=== PATIENT | male | born 1960 | race Caucasian/White ===

== ENCOUNTER 2021-07-19 14:30 | Outpatient (RCR) | payer OTHER, SELFPAY ==
--- NOTE | 2021-05-11 17:09 | ST.OPTN ---
Visit Care Team Role Provider Type Krystyna Zeng MD Family Provider Non-Staff Primary Care Provider Address: [place], [address] NIKKI Ji Attending Provider Non-Staff Referring Provider Address: [address] [place], [address] PROGRAM PROFESSIONAL Treatment Note PROGRAM PROFESSIONAL Treatment Note Start: 05/04/21 15:48 Freq: Status: Active Protocol: Document 05/11/21 16:46 LNK (Rec: 05/11/21 17:09 LNK [id number]) Speech Pathology Treatment Note Session Time Visit Start Time 11:30 Visit Stop Time 12:30 Total Visit Minutes 4 Visit Information Visit Number 2 Plan of Care Dates 05/04/21-08/20/21 Setting Treatment Setting Outpatient Care Visit Type Note Type Treatment Note Next Note Type Next Note Type Treatment Note General Information General Information Pt is a 60 year old male who presented for evaluation of assessment of aphasia secondary to early onset Alzheimers. Pt was accompanied by his , Kate . According to the pt and his , behavioral changes in pt 's presentation were observed by the pt's 2-3 years ago . In August 2020, she began to suspect something was wrong and sought medical assistance. Pt received formal diagnosis of early onset Alzheimer's Disease in November 2020. Pt was referred to this clinic for assessment of Aphasia as pt is unable to express himself or understand all that is said to him. He complains of word- finding difficulty, difficulty with formulating thoughts, confusion and memory problems. His describes her 's communication attempts as consisting of gestures, difficulty with verbal expression, halting and incomplete attempts to express his needs. She also reports noticing that her is more confused. Pt is retired [employer],taking early intermediate as he was unable to carry out his job effectively . His has since stopped working to be home with her . Currently pt has a primary care physician in [place], and one Neurologist in [place] and another at the [facility]. Subjective Identification Type Name,Date of Identification Reconciled With Medical Record Others Present Family Chief Complaint(s) Language,Cognitive Patient Knowledge/Awareness of PROGRAM PROFESSIONAL Role Good in Treatment Parent/Caretake Knowledge/Awareness of Good PROGRAM PROFESSIONAL Role in Treatment Objective Short Term Goals COMMUNICATION: 1) Pt will explore options for obtaining a tablet and the AAC porgram TouchChat. 2) Pt and provider education will be targeted in order for understanding how to use AAC and personalize thw icons relative to the pt. COGNITION: 1) Pt / will create a centralized information hub using a white board listing important events, a calendar, chores list etc. Pt's keys, phone, etc will be located in this information hub for consistency and convenience for the pt to find information . 2) A picture book/memory book will be created by the pt and his . Pictures of family members, meaningful events, possessions such as a favorite car, etc. can be included to stimulate the pt's memory and provide cognitive stimulation. 3) Caregiver education will be provided on how to assist the pt's expression/memory using strategic methods. [ End ] Treatment Activities Reviewed last week's appointment to reorient pt to the session and why he is in therapy. Reviewed the assessment needs for the pt and the recommendation for AAC system. Pt and agreed with the plan. AAC systems were described and demonstrated. Encouraged the pt and his to explore different AAC aps in addition to TouchChat to make sure the pt is able to use the system effectively. Assessment Patient Response to Treatment Excellent Rehab Potential Fair Impairments Identified Aphasia,Auditory Comprehension ,Cognitive-Linguistic Skills, Memory - Typing Pool Supervisor,Memory - Short Term,Problem Solving Assessment of Improvement Pt was better able to verbally express himself today, stating it is a good day. He stated he was encouraged to get going on using the AAC as needed. Cognitive supports were described and discussed relative to what the pt and his have started at home. His reported there is a white board for central information, she is labeling thing in order to help the pt stay organized and know where things go. Encouraged a picture book for memory assistance and to encourage expressive language (verbal/ AAC, etc.). Both agreed that would be important to get started on. Reviewed with Patient Goals,Home Exercise Program Patient/Caregiver Understanding Excellent Plan Therapeutic Contents Cognitive-Linguistic Training, Expressive Language Training Provided Patient/Caregiver Instruction Home Exercise Program,Plan of Care,Questions/Concerns
--- NOTE | 2021-05-15 16:08 | ST.OPIE ---
Visit Care Team Role Provider Type Krystyna Zeng MD Family Provider Non-Staff Primary Care Provider Specialty: Medical [facility] [place], [address] Email: NIKKI Ji Attending Provider Non-Staff Referring Provider Specialty: Nursing Address: [address], [place], [address] Email: Speech-Language Pathology Initial Evaluation VISUAL ASSOCIATE Adult Cognitive Linguistic Eval Start: 05/04/21 15:48 Freq: Status: Active Protocol: Document 05/04/21 15:52 LNK (Rec: 05/04/21 16:01 LNK [id number]) Adult Cognitive Linguistic Evaluation Session Time Visit Start Time 11:30 Visit Stop Time 12:30 Total Visit Minutes 60 Visit Information Plan of Care Dates 05/04/21-08/20/21 Insurance Information Referral Referring Provider Dr. Kacey Boyce, Neurologist. Reason for Referral early onset Alzheimers Setting Assessment Location Outpatient Care Visit Type Note Type Initial evaluation Patient Information Identification Type Name,Date of Medical History Pt is a 60 year old male who presented for evaluation of assessment of aphasia secondary to early onset Alzheimers. Pt was accompanied by his , Kate . According to the pt and his , behavioral changes in pt 's presentation were observed by the pt's 2-3 years ago . In August 2020, she began to suspect something was wrong and sought medical assistance. Pt received formal diagnosis of early onset Alzheimer's Disease in November 2020. Pt was referred to this clinic for assessment of Aphasia as pt is unable to express himself or understand all that is said to him. He complains of word- finding difficulty, difficulty with formulating thoughts, confusion and memory problems. His describes her 's communication attempts as consisting of gestures, difficulty with verbal expression, halting and incomplete attempts to express his needs. She also reports noticing that her is more confused. Pt is retired [employer],taking early half-way as he was unable to carry out his job effectively . His has since stopped working to be home with her . Currently pt has a primary care physician in [place], and one Neurologist in [place] and another at the [facility]. Occupation Status [employer], Retired Previous Therapy Previous Speech-Language Therapy No Subjective Patient Report Pt and his were seated in the treatment room. They were able to present the pt's history as it pertained to this appointment. Pt's did most of the talking and pt provided some information. Informal Assessment Receptive Language Normal No Expressive Language Normal No Speech Impairment(s) Imprecise articulation Cognition Normal No Formal Assessment Administration Discontinued Results The Western Aphasia Battery was initiated relative to pt's difficulty with expressing himself. It quickly became obvious that the pt's disease process had progressed to where the assessment requirements were beyond the pt's ability. He became confuces by the directions and was frustrated that he was unable to participate. The pt 's reported that [facility], [facility], pt's cognition was evaluated using the SLUMS. She stated that the DrRuddy reported a low SLUMS score, indicating significant cognitive decline. Based on the above observations, the WAB testing was aborted and a Functional Needs Assessment was initiated. Findings/Results Language Function Moderately-severely impaired Cognitive Function Moderately impaired Findings Pt presented with severe communication skill deficits. Pt was oriented to self, person and place; He pointed to the door but he was unable to locate the window when asked to point to the door and then the window. He was able to answer 20 yes/no questions accurately. He was able to state his name, his former occupation and his age. He had difficulty with saying his address or name items within the treatment room. He demonstrated halting telegraphic speech consisting of single, paraphasias, occasional prepositional phrases, severe fluency disruptions and severe word- finding difficulty. His reported it is a lot of work to figure out what the pt is talking about. Cognitively, pt demonstrated the inability to follow more than single step directions. He was confused when asked to list the names of animals, unable to understand the directions or what I was asking of him.. He was unable to report his address or repeat more than a 3 syllable phrase. Mathmatical computation recall of more than 2 words were observed. The pt would frequently say no or yes in response to any difficult questions or tasks. He demonstrated deficits in working memory, and short term memory skills. Cognitive-Linguistic therapy is recommended weekly for 6 months. For communication, the use of an AAC program, Beto, is recommended. This AAC program is user friendly, is portable via tablet and/or smart phone. Pt and his will be educated in programming the AAC to personalize the output. Cognitively, therapy focuses on functional and meaningful outcomes that include the pt and caregivers in collaborative decision-making process. The goal is to improve functional outcomes that improve the pt's daily life. Strategies such as external memory supports include centralized system of information, (e.g., a calendar , lists of chores, etc). The use of pictures relative to the pt can be used for identifying family, vacations, etc. Dependent on the needs of the pt, the person-centered therapy goals are created. Cognitive Communication Deficits Self-awareness of Cognitive- Situational awareness ( Communication Deficits recognition of problem in context;in real time) Concomitant Factors Comment Pt reported inconsistent visual field loss, primarily on left side Impact on Functioning Safety Risks Mod: Being Left Alone at Home Sev: Reacting to Emergency Managing Medication Traveling Alone in Community Prognosis Based on Cognitive status,Other ( comment) Comment Progressive nature of disease process Plan of Care Speech-Language Treatment Yes Frequency weekly Duration currently pt has 15 sessions authorized Patient/Caregiver Education Described results of evaluation,Patient expressed understanding of evaluation, Patient expressed agreement with goals and treatment plans ,Family/caregivers expressed understanding of evaluation, Family/caregivers expressed agreement with goals and treatment plan,Patient requires further education/ training,Family/caregivers require further education/ training Short Term Goals COMMUNICATION: 1) Pt will explore options for obtaining a tablet and the AAC porgram TouchChat. 2) Pt and provider education will be targeted in order for understanding how to use AAC and personalize thw icons relative to the pt. COGNITION: 1) Pt / will create a centralized information hub using a white board listing imprtant events, a calendar, chores list etc. Pt's keys, phone, etc will be located in [facility] information hub for consistency and convenience for the pt to find information . 2) A picture book/memory book will be created by the pt and his . Pictures of family members, meaningful events, possessions such as a favorite car, etc. can be included to stimulate the pt's memory and provide cognitive stimulation. 3) Caregiver education will be provided on how to assist the pt's expression/memory using stagegic methods.
--- NOTE | 2021-05-15 16:09 | ST.OPPOC ---
Physical, Occupational & Speech Therapy At [facility] Visit Care Team Role Provider Type Krystyna Zeng MD Family Provider Non-Staff Primary Care Provider Address: [place], [address] NIKKI Ji Attending Provider Non-Staff Referring Provider Address: [address] [place], [address] Speech Pathology Plan of Care General Information Pt is a 60 year old male who presented for evaluation of assessment of aphasia secondary to early onset Alzheimers. Pt was accompanied by his , Kate. According to the pt and his , behavioral changes in pt's presentation were observed by the pt's 2-3 years ago. In August 2020, she began to suspect something was wrong and sought medical assistance. Pt received formal diagnosis of early onset Alzheimer's Disease in November 2020. Pt was referred to this clinic for assessment of Aphasia as pt is unable to express himself or understand all that is said to him. He complains of word-finding difficulty, difficulty with formulating thoughts, confusion and memory problems. His describes her 's communication attempts as consisting of gestures , difficulty with verbal expression, halting and incomplete attempts to express his needs. She also reports noticing that her is more confused. Pt is retired [employer],taking early half-way as he was unable to carry out his job effectively. His has since stopped working to be home with her . Currently pt has a primary care physician in [place], and one Neurologist in [place] and another at the [facility]. Visit Number 2 Plan of Care Dates 05/04/21-08/20/21 Chief Complaint(s) Language,Cognitive Patient Knowledge/Awareness of Good POLE FRAMER Role in Treatment Parent/Caretake Knowledge/ Good Awareness of POLE FRAMER Role in Treatment Language Function Moderately-severely impai Cognitive Function Moderately impaired Findings Pt presented with severe communication skill deficits. Pt was oriented to self, person and place; He pointed to the door but he was unable to locate the window when asked to point to the door and then the window. He was able to answer 20 yes/no questions accurately. He was able to state his name, his former occupation and his age. He had difficulty with saying his address or name items within the treatment room. He demonstrated halting telegraphic speech consisting of single, paraphasias, occasional prepositional phrases, severe fluency disruptions and severe word-finding difficulty. His reported it is a lot of work to figure out what the pt is talking about. Cognitively, pt demonstrated the inability to follow more than single step directions. He was confused when asked to list the names of animals , unable to understand the directions or what I was asking of him.. He was unable to report his address or repeat more than a 3 syllable phrase. Mathmatical computation recall of more than 2 words were observed. The pt would frequently say no or yes in response to any difficult questions or tasks. He demonstrated deficits in working memory, and short term memory skills. Cognitive-Linguistic therapy is recommended weekly for 6 months. For communication, the use of an AAC program, EnerveechChat, is recommended. This AAC program is user friendly, is portable via tablet and/or smart phone. Pt and his will be educated in programming the AAC to personalize the output. Cognitively, therapy focuses on functional and meaningful outcomes that include the pt and caregivers in collaborative decision-making process. The goal is to improve functional outcomes that improve the pt's daily life. Strategies such as external memory supports include centralized system of information, (e.g. , a calendar, lists of chores, etc). The use of pictures relative to the pt can be used for identifying family, vacations, etc. Dependent on the needs of the pt, the person-centered therapy goals are created. Short Term Goals COMMUNICATION: 1) Pt will explore options for obtaining a tablet and the AAC myhubChat. 2) Pt and provider education will be targeted in order for understanding how to use AAC and personalize thw icons relative to the pt. COGNITION: 1) Pt / will create a centralized information hub using a white board listing imprtant events, a calendar, chores list etc. Pt 's keys, phone, etc will be located in [facility] information hub for consistency and convenience for the pt to find information. 2) A picture book/memory book will be created by the pt and his . Pictures of family members , meaningful events, possessions such as a favorite car, etc. can be included to stimulate the pt's memory and provide cognitive stimulation. 3) Caregiver education will be provided on how to assist the pt's expression/memory using stagegic methods. [ End ] Treatment Activities Reviewed last week's appointment to reorient pt to the session and why he is in therapy. Reviewed the assessment needs for the pt and the recommendation for AAC system. Pt and agreed with the plan. AAC systems were described and demonstrated. Encouraged the pt and his to explore different AAC aps in addition to TouchChat to make sure the pt is able to use the system effectively. Rehabilitation Potential Fair Impairments Identified Aphasia,Auditory Comprehension,Cognition,Memory - Alf,Memory - Short Term,Problem Solving Assessment of Improvement Pt was better able to verbally express himself today, stating it is a good day. He stated he was encouraged to get going on using the AAC as needed. Cognitive supports were described and discussed relative to what the pt and his have started at home. His reported there is a white board for central information, she is labeling thing in order to help the pt stay organized and know where things go. Encouraged a picture book for memory assistance and to encourage expressive language (verbal/AAC, etc.) . Both agreed that would be important to get started on. Reviewed with Patient Goals,Home Exercise Program Patient Understanding Excellent Therapeutic Contents Cognitive-Linguistic Sarbjit,Expressive Language Train Electronically Signed by: Morelia Marie, POLE FRAMER 05/15/21 1743 Please Sign and Return: I have reviewed this Plan of Care and certify that the skilled therapy services above are required to meet the patient?s needs. Physician Signature Date Printed Name and Credentials Clinical Instructor Signature Printed Name and Credentials
--- NOTE | 2021-05-25 16:57 | ST.OPTN ---
Visit Care Team Role Provider Type Krystyna Zeng MD Family Provider Non-Staff Primary Care Provider Address: [place], [address] NIKKI Ji Attending Provider Non-Staff Referring Provider Address: [address] [place], [address] EMERGENCY MEDICAL SERVICES COORDINATOR Treatment Note EMERGENCY MEDICAL SERVICES COORDINATOR Treatment Note Start: 05/04/21 15:48 Freq: Status: Active Protocol: Document 05/25/21 16:50 LNK (Rec: 05/25/21 16:57 LNK [email or web address]) Speech Pathology Treatment Note Session Time Visit Start Time 11:30 Visit Stop Time 12:30 Total Visit Minutes 60 Visit Information Visit Number 3 Plan of Care Dates 05/04/21-08/20/21 Setting Treatment Setting Outpatient Care Visit Type Note Type Treatment Note Next Note Type Next Note Type Treatment Note General Information General Information Pt is a 60 year old male who presented for evaluation of assessment of aphasia secondary to early onset Alzheimers. Pt was accompanied by his , Kate . According to the pt and his , behavioral changes in pt 's presentation were observed by the pt's 2-3 years ago . In August 2020, she began to suspect something was wrong and sought medical assistance. Pt received formal diagnosis of early onset Alzheimer's Disease in November 2020. Pt was referred to this clinic for assessment of Aphasia as pt is unable to express himself or understand all that is said to him. He complains of word- finding difficulty, difficulty with formulating thoughts, confusion and memory problems. His describes her 's communication attempts as consisting of gestures, difficulty with verbal expression, halting and incomplete attempts to express his needs. She also reports noticing that her is more confused. Pt is retired [employer],taking early custodial as he was unable to carry out his job effectively . His has since stopped working to be home with her . Currently pt has a primary care physician in [place], and one Neurologist in [place] and another at the [facility]. Subjective Identification Type Name,Date of Identification Reconciled With Medical Record Others Present Family Chief Complaint(s) Language,Cognitive Patient Knowledge/Awareness of EMERGENCY MEDICAL SERVICES COORDINATOR Role Good in Treatment Parent/Caretake Knowledge/Awareness of Good EMERGENCY MEDICAL SERVICES COORDINATOR Role in Treatment Objective Short Term Goals COMMUNICATION: 1) Pt will explore options for obtaining a tablet and the AAC porgram TouchChat. 2) Pt and provider education will be targeted in order for understanding how to use AAC and personalize thw icons relative to the pt. COGNITION: 1) Pt / will create a centralized information hub using a white board listing imprtant events, a calendar, chores list etc. Pt's keys, phone, etc will be located in [facility] information hub for consistency and convenience for the pt to find information . 2) A picture book/memory book will be created by the pt and his . Pictures of family members, meaningful events, possessions such as a favorite car, etc. can be included to stimulate the pt's memory and provide cognitive stimulation. 3) Caregiver education will be provided on how to assist the pt's expression/memory using strategic methods. [ End ] Treatment Activities Reviewed last week's appointment to reorient pt to the session and why he is in therapy. AAC communication was introduced with TouchChat This appeared to be too difficult for the pt with many levels to navigate. Given his memory, he may not be successful. Pt discussed the difficulty and indicated he may start with a simpler AAC. Reviewed the aphasia and the cognitive decline. Provided Functional Needs list for the pt and his to complete and bring back. Overview of the GPDR sys tem to help pt with ADL completion. Assessment Patient Response to Treatment Excellent Rehab Potential Fair Impairments Identified Aphasia,Auditory Comprehension ,Cognitive-Linguistic Skills, Memory - Doll Wig Maker Rooted Hair,Memory - Short Term,Problem Solving Reviewed with Patient Goals,Home Exercise Program Patient/Caregiver Understanding Excellent Plan Therapeutic Contents Cognitive-Linguistic Training, Expressive Language Training Provided Patient/Caregiver Instruction Home Exercise Program,Plan of Care,Questions/Concerns
--- NOTE | 2021-06-07 17:17 | ST.OPTN ---
Visit Care Team Role Provider Type Krystyna Zeng MD Family Provider Non-Staff Primary Care Provider Address: [place], [address] NIKKI Ji Attending Provider Non-Staff Referring Provider Address: [address] [place], [address] VACCINE CUSTOMER REPRESENTATIVE Treatment Note VACCINE CUSTOMER REPRESENTATIVE Treatment Note Start: 05/04/21 15:48 Freq: Status: Active Protocol: Document 06/07/21 17:03 LNK (Rec: 06/07/21 17:17 LNK [id number]) Speech Pathology Treatment Note Session Time Visit Start Time 14:30 Visit Stop Time 15:30 Total Visit Minutes 60 Visit Information Visit Number 4 Plan of Care Dates 05/04/21-08/20/21 Setting Treatment Setting Outpatient Care Visit Type Note Type Treatment Note Next Note Type Next Note Type Treatment Note General Information General Information Pt is a 60 year old male who presented for evaluation of assessment of aphasia secondary to early onset Alzheimers. Pt was accompanied by his , Kate . According to the pt and his , behavioral changes in pt 's presentation were observed by the pt's 2-3 years ago . In August 2020, she began to suspect something was wrong and sought medical assistance. Pt received formal diagnosis of early onset Alzheimer's Disease in November 2020. Pt was referred to this clinic for assessment of Aphasia as pt is unable to express himself or understand all that is said to him. He complains of word- finding difficulty, difficulty with formulating thoughts, confusion and memory problems. His describes her 's communication attempts as consisting of gestures, difficulty with verbal expression, halting and incomplete attempts to express his needs. She also reports noticing that her is more confused. Pt is retired [employer],taking early senior care as he was unable to carry out his job effectively . His has since stopped working to be home with her . Currently pt has a primary care physician in [place], and one Neurologist in [place] and another at the [facility]. Subjective Identification Type Name,Date of Identification Reconciled With Medical Record Others Present Family Chief Complaint(s) Language,Cognitive Patient Knowledge/Awareness of VACCINE CUSTOMER REPRESENTATIVE Role Good in Treatment Parent/Caretake Knowledge/Awareness of Good VACCINE CUSTOMER REPRESENTATIVE Role in Treatment Objective Short Term Goals COMMUNICATION: NEW GOALS COMMUNICATION: 1) Pt will practice using common phrases using [employer] patricia 3-5x daily as reported by pt/. 2) Pt willbe able to say common ADL phrases to request needs and desires 6/10 opportunities as reported by pt/. COGNITION: 1) Pt / will create a centralized information hub using a white board listing important events, a calendar, chores list etc. Pt's keys, phone, etc will be located in [facility] information hub for consistency and convenience for the pt to find information . 2) A picture book/memory book will be created by the pt and his . Pictures of family members, meaningful events, possessions such as a favorite car, etc. can be included to stimulate the pt's memory and provide cognitive stimulation. 3) Caregiver education will be provided on how to assist the pt's expression/memory using stagegic methods. Pt will participate in cognitive exercises as instructed 3-5x/day as reported by pt/. [ End ] Treatment Activities Reviewed last week's appointment to reorient pt to the session and why he is in therapy. Reviewed the aphasia and cognitive decline. Provided [employer] patricia and Brain games to work together at home. Pt's communication is poor. Repetitive practice of common phrases was initiated, determining the appropriate levels to begin for home practice. Pt and indicated they understood. Assessment Patient Response to Treatment Excellent Rehab Potential Fair Impairments Identified Aphasia,Auditory Comprehension ,Cognitive-Linguistic Skills, Memory - Mold Maker Apprentice,Memory - Short Term,Problem Solving Assessment of Improvement Pt and his attended treatment. Explained that AAC may not be appropriate, given the pt's poor memory. Changed course to common ADL phrases and increased attention and memory cognition activities. Reviewed with Patient Goals,Home Exercise Program Patient/Caregiver Understanding Excellent Plan Therapeutic Contents Cognitive-Linguistic Training, Expressive Language Training Provided Patient/Caregiver Instruction Home Exercise Program,Plan of Care,Questions/Concerns
--- NOTE | 2021-06-16 11:29 | ST.OPTN ---
Visit Care Team Role Provider Type Krystyna Zeng MD Family Provider Non-Staff Primary Care Provider Address: [place], [address] NIKKI Ji Attending Provider Non-Staff Referring Provider Address: [address] [place], [address] COMPONENT DESIGN ENGINEER Treatment Note COMPONENT DESIGN ENGINEER Treatment Note Start: 05/04/21 15:48 Freq: Status: Active Protocol: Document 06/16/21 11:22 LNK (Rec: 06/16/21 11:29 LNK [id number]) Speech Pathology Treatment Note Session Time Visit Start Time 13:30 Visit Stop Time 14:30 Total Visit Minutes 60 Visit Information Visit Number 5 Plan of Care Dates 05/04/21-08/20/21 Setting Treatment Setting Outpatient Care Visit Type Note Type Treatment Note Next Note Type Next Note Type Treatment Note General Information General Information Pt is a 60 year old male who presented for evaluation of assessment of aphasia secondary to early onset Alzheimers. Pt was accompanied by his , Kate . According to the pt and his , behavioral changes in pt 's presentation were observed by the pt's 2-3 years ago . In August 2020, she began to suspect something was wrong and sought medical assistance. Pt received formal diagnosis of early onset Alzheimer's Disease in November 2020. Pt was referred to this clinic for assessment of Aphasia as pt is unable to express himself or understand all that is said to him. He complains of word- finding difficulty, difficulty with formulating thoughts, confusion and memory problems. His describes her 's communication attempts as consisting of gestures, difficulty with verbal expression, halting and incomplete attempts to express his needs. She also reports noticing that her is more confused. Pt is retired [employer],taking early residential as he was unable to carry out his job effectively . His has since stopped working to be home with her . Currently pt has a primary care physician in [place], and one Neurologist in [place] and another at the [facility]. Subjective Identification Type Name,Date of Identification Reconciled With Medical Record Others Present Family Chief Complaint(s) Language,Cognitive Patient Knowledge/Awareness of COMPONENT DESIGN ENGINEER Role Good in Treatment Parent/Caretake Knowledge/Awareness of Good COMPONENT DESIGN ENGINEER Role in Treatment Objective Short Term Goals COMMUNICATION: NEW GOALS COMMUNICATION: 1) Pt will practice using common phrases using [employer] patricia 3-5x daily as reported by pt/. 2) Pt will be able to say common ADL phrases to request needs and desires 6/10 opportunities as reported by pt/. COGNITION: 1) Pt / will create a centralized information hub using a white board listing imprtant events, a calendar, chores list etc. Pt's keys, phone, etc will be located in [facility] information hub for consistency and convenience for the pt to find information . 2) A picture book/memory book will be created by the pt and his . Pictures of family members, meaningful events, possessions such as a favorite car, etc. can be included to stimulate the pt's memory and provide cognitive stimulation. 3) Caregiver education will be provided on how to assist the pt's expression/memory using stagegic methods. Pt will participate in cognitive exercises as instructed 3-5x/day as reported by pt/. [ End ] Treatment Activities Reorient pt to the session and why he is in therapy. Reviewed [employer] apps and and other activities for brain exercise. Pt and his reported that they have not had a chance to get these apps or an iPad. They noted there have been many DrRuddy appointments this past week and by the end of the day, Rolly is tired. He continues to read aloud with his as exercise. Continued to encourage the practice of brain games to prevent further decline in skills. Pt's expressive communication is poor, characterized by empty speech with gestures. His will interpret for him. Given context, his message becomes more clear. Repetitive practice of common phrases was continued at appropriate levels for home practice. Pt and indicated they understood. Assessment Patient Response to Treatment Excellent Rehab Potential Fair Impairments Identified Aphasia,Auditory Comprehension ,Cognitive-Linguistic Skills, Memory - Care Home,Memory - Short Term,Problem Solving Assessment of Improvement Pt and his attended Reviewed with Patient Goals,Home Exercise Program Patient/Caregiver Understanding Excellent Plan Therapeutic Contents Cognitive-Linguistic Training, Expressive Language Training Provided Patient/Caregiver Instruction Home Exercise Program,Plan of Care,Questions/Concerns
--- NOTE | 2021-06-22 17:13 | ST.OPTN ---
Visit Care Team Role Provider Type Krystyna Zeng MD Family Provider Non-Staff Primary Care Provider Address: [place], [address] NIKKI Ji Attending Provider Non-Staff Referring Provider Address: [address] [place], [address] EGG SORTER Treatment Note EGG SORTER Treatment Note Start: 05/04/21 15:48 Freq: Status: Active Protocol: Document 06/21/21 16:59 LNK (Rec: 06/22/21 17:11 LNK [id number]) Speech Pathology Treatment Note Session Time Visit Start Time 14:30 Visit Stop Time 15:30 Total Visit Minutes 60 Visit Information Visit Number 5 Plan of Care Dates 05/04/21-08/20/21 Setting Treatment Setting Outpatient Care Visit Type Note Type Treatment Note Next Note Type Next Note Type Treatment Note General Information General Information Pt is a 60 year old male who presented for evaluation of assessment of aphasia secondary to early onset Alzheimers. Pt was accompanied by his , Kate . According to the pt and his , behavioral changes in pt 's presentation were observed by the pt's 2-3 years ago . In August 2020, she began to suspect something was wrong and sought medical assistance. Pt received formal diagnosis of early onset Alzheimer's Disease in November 2020. Pt was referred to this clinic for assessment of Aphasia as pt is unable to express himself or understand all that is said to him. He complains of word- finding difficulty, difficulty with formulating thoughts, confusion and memory problems. His describes her 's communication attempts as consisting of gestures, difficulty with verbal expression, halting and incomplete attempts to express his needs. She also reports noticing that her is more confused. Pt is retired [employer],taking early jail as he was unable to carry out his job effectively . His has since stopped working to be home with her . Currently pt has a primary care physician in [place], and one Neurologist in [place] and another at the [facility]. Subjective Identification Type Name,Date of Identification Reconciled With Medical Record Others Present Family Chief Complaint(s) Language,Cognitive Patient Knowledge/Awareness of EGG SORTER Role Good in Treatment Parent/Caretake Knowledge/Awareness of Good EGG SORTER Role in Treatment Objective Short Term Goals COMMUNICATION: NEW GOALS COMMUNICATION: 1) Pt will practice using common phrases using [employer] patricia 3-5x daily as reported by pt/. 2) Pt will be able to say common ADL phrases to request needs and desires 6/10 opportunities as reported by pt/. COGNITION: 1) Pt / will create a centralized information hub using a white board listing imprtant events, a calendar, chores list etc. Pt's keys, phone, etc will be located in [facility] information hub for consistency and convenience for the pt to find information . 2) A picture book/memory book will be created by the pt and his . Pictures of family members, meaningful events, possessions such as a favorite car, etc. can be included to stimulate the pt's memory and provide cognitive stimulation. 3) Caregiver education will be provided on how to assist the pt's expression/memory using stagegic methods. Pt will participate in cognitive exercises as instructed 3-5x/day as reported by pt/. [ End ] Treatment Activities Pt's brought in workbooks that she and Rolly are working through. Excellent activities for cognitive skills. Reviewed [employer] patricia. Pt and recently learned that the [employer] will pay for pts to get the patricia and AAC device. Pt's will contact [place] for more information. Rolly continues to read aloud with his as exercise. Continued to encourage the practice of brain games to prevent further decline in skills. Pt's expressive communication is poor, characterized by empty speech with gestures. His will interpret for him. Given context, his message becomes more clear. Repetitive practice of common phrases was continued at appropriate levels for home practice. Pt and indicated they understood. Assessment Patient Response to Treatment Excellent Rehab Potential Fair Impairments Identified Aphasia,Auditory Comprehension ,Cognitive-Linguistic Skills, Memory - Fdc,Memory - Short Term,Problem Solving Assessment of Improvement Pt and his attended Reviewed with Patient Goals,Home Exercise Program Patient/Caregiver Understanding Excellent Plan Therapeutic Contents Cognitive-Linguistic Training, Expressive Language Training Provided Patient/Caregiver Instruction Home Exercise Program,Plan of Care,Questions/Concerns
--- NOTE | 2021-06-28 15:43 | ST.OPTN ---
Visit Care Team Role Provider Type Krystyna Zeng MD Family Provider Non-Staff Primary Care Provider Address: [place], [address] NIKKI Ji Attending Provider Non-Staff Referring Provider Address: [address] [place], [address] COPIER FIELD SERVICE TECHNICIAN Treatment Note COPIER FIELD SERVICE TECHNICIAN Treatment Note Start: 05/04/21 15:48 Freq: Status: Active Protocol: Document 06/28/21 14:31 LNK (Rec: 06/28/21 15:43 LNK [id number]) Speech Pathology Treatment Note Session Time Visit Start Time 14:30 Visit Stop Time 15:30 Total Visit Minutes 60 Visit Information Visit Number 7 Plan of Care Dates 05/04/21-08/20/21 Setting Treatment Setting Outpatient Care Visit Type Note Type Treatment Note Next Note Type Next Note Type Treatment Note General Information General Information Pt is a 60 year old male who presented for evaluation of assessment of aphasia secondary to early onset Alzheimers. Pt was accompanied by his , Kate . According to the pt and his , behavioral changes in pt 's presentation were observed by the pt's 2-3 years ago . In August 2020, she began to suspect something was wrong and sought medical assistance. Pt received formal diagnosis of early onset Alzheimer's Disease in November 2020. Pt was referred to this clinic for assessment of Aphasia as pt is unable to express himself or understand all that is said to him. He complains of word- finding difficulty, difficulty with formulating thoughts, confusion and memory problems. His describes her 's communication attempts as consisting of gestures, difficulty with verbal expression, halting and incomplete attempts to express his needs. She also reports noticing that her is more confused. Pt is retired [employer],taking early snf as he was unable to carry out his job effectively . His has since stopped working to be home with her . Currently pt has a primary care physician in [place], and one Neurologist in [place] and another at the [facility]. Subjective Identification Type Name,Date of Identification Reconciled With Medical Record Others Present Family Chief Complaint(s) Language,Cognitive Patient Knowledge/Awareness of COPIER FIELD SERVICE TECHNICIAN Role Good in Treatment Parent/Caretake Knowledge/Awareness of Good COPIER FIELD SERVICE TECHNICIAN Role in Treatment Objective Short Term Goals COMMUNICATION: NEW GOALS COMMUNICATION: 1) Pt will practice using common phrases using [employer] patricia 3-5x daily as reported by pt/. 2) Pt will be able to say ADL phrases with v/v cuing as needed to meet needs and desires 6/10 opportunities as reported by pt/. COGNITION: 1) Pt / will create a centralized information hub using a white board listing important events, a calendar, chores list etc. Pt's keys, phone, etc will be located in this information hub for consistency and convenience for the pt to find information . Goal Met 2) A picture book/memory book will be created by the pt and his . Pictures of family members, meaningful events, possessions such as a favorite car, etc. can be included to stimulate the pt's memory and provide cognitive stimulation. Ongoing 3) Caregiver education will be provided on how to assist the pt's expression/memory using strategic methods. Ongoing Pt will participate in cognitive exercises as instructed 3-5x/day as reported by pt/.Ongoing [ End ] Treatment Activities Pt's brought in workbooks that she and Rolly are working through. Excellent activities for cognitive skills. Activities on [email or web address] patricia for recal of pictures 5/10. recal playing card #s 15. Recall face cards 0/4. Pt's has consultation with [employer] on 07/06 for AAC discussion. Continued to encourage the practice of brain games to prevent further decline in skills. Pt's expressive communication is poor, characterized by empty speech with gestures. His will interpret for him. Given context, his message becomes more clear. Repetitive practice of common phrases is encouraged. Assessment Patient Response to Treatment Excellent Rehab Potential Fair Impairments Identified Aphasia,Auditory Comprehension ,Cognitive-Linguistic Skills, Memory - Pharmacist Technician,Memory - Short Term,Problem Solving Assessment of Improvement Pt and his attended Reviewed with Patient Goals,Home Exercise Program Patient/Caregiver Understanding Excellent Plan Therapeutic Contents Cognitive-Linguistic Training, Expressive Language Training Provided Patient/Caregiver Instruction Home Exercise Program,Plan of Care,Questions/Concerns
--- NOTE | 2021-07-11 14:32 | ST.OPTN ---
Visit Care Team Role Provider Type Krystyna Zeng MD Family Provider Non-Staff Primary Care Provider Address: [place], [address] NIKKI Ji Attending Provider Non-Staff Referring Provider Address: [address] [place], [address] VEGETABLE FARM MANAGER Treatment Note VEGETABLE FARM MANAGER Treatment Note Start: 05/04/21 15:48 Freq: Status: Active Protocol: Document 07/11/21 14:23 LNK (Rec: 07/11/21 14:32 LNK [id number]) Speech Pathology Treatment Note Session Time Visit Start Time 14:30 Visit Stop Time 15:30 Total Visit Minutes 60 Visit Information Visit Number 8 Plan of Care Dates 05/04/21-08/20/21 Setting Treatment Setting Outpatient Care Visit Type Note Type Treatment Note Next Note Type Next Note Type Treatment Note General Information Patient History Pt is a 60 year old male who presented for evaluation of assessment of aphasia secondary to early onset Alzheimers. Pt was accompanied by his , Kate . According to the pt and his , behavioral changes in pt 's presentation were observed by the pt's 2-3 years ago . In August 2020, she began to suspect something was wrong and sought medical assistance. Pt received formal diagnosis of early onset Alzheimer's Disease in November 2020. Pt was referred to this clinic for assessment of Aphasia as pt is unable to express himself or understand all that is said to him. He complains of word- finding difficulty, difficulty with formulating thoughts, confusion and memory problems. His describes her 's communication attempts as consisting of gestures, difficulty with verbal expression, halting and incomplete attempts to express his needs. She also reports noticing that her is more confused. Pt is retired [employer],taking early assisted as he was unable to carry out his job effectively . His has since stopped working to be home with her . Currently pt has a primary care physician in [place], and one Neurologist in [place] and another at the [facility]. [ End ] Subjective Identification Type Name,Date of Identification Reconciled With Medical Record Others Present Family Chief Complaint(s) Language,Cognitive Patient Knowledge/Awareness of VEGETABLE FARM MANAGER Role Good in Treatment Parent/Caretake Knowledge/Awareness of Good VEGETABLE FARM MANAGER Role in Treatment Objective Short Term Goals COMMUNICATION: NEW GOALS COMMUNICATION: 1) Pt will practice using common phrases using [employer] patricia 3-5x daily as reported by pt/. 2) Pt will be able to say ADL phrases with v/v cuing as needed to meet needs and desires 6/10 opportunities as reported by pt/. COGNITION: 1) Pt / will create a centralized information hub using a white board listing important events, a calendar, chores list etc. Pt's keys, phone, etc will be located in [facility] information hub for consistency and convenience for the pt to find information . Goal Met 2) A picture book/memory book will be created by the pt and his . Pictures of family members, meaningful events, possessions such as a favorite car, etc. can be included to stimulate the pt's memory and provide cognitive stimulation. Ongoing 3) Caregiver education will be provided on how to assist the pt's expression/memory using stagegic methods. Ongoing Pt will participate in cognitive exercises as instructed 3-5x/day as reported by pt/.Ongoing [ End ] Treatment Activities Rolly and his reported that they had a busy weekend with many relatives to their home. Rolly noted that after a while he needed to remove himself from the group as he stated ' too much and gestured stressed. Rolly does very little talking at home. Reminded him the DON'T' USE IT , YOU LOSE IT) from principles of neuroplasticity. Language remains jumbled words and gestures. however, if a person listens long enough, Rolly's message comes out. Assessment Patient Response to Treatment Excellent Rehab Potential Fair Impairments Identified Aphasia,Auditory Comprehension ,Cognitive-Linguistic Skills, Memory - Institution Director,Memory - Short Term,Problem Solving Assessment of Improvement She reported that I should receive an e-mail @Pay from them to start the process of getting AAC. Reviewed with Patient Goals,Home Exercise Program Patient/Caregiver Understanding Excellent Plan Therapeutic Contents Cognitive-Linguistic Training, Expressive Language Training Provided Patient/Caregiver Instruction Home Exercise Program,Plan of Care,Questions/Concerns
--- NOTE | 2021-07-19 16:45 | ST.OPTN ---
Visit Care Team Role Provider Type Krystyna Zeng MD Family Provider Non-Staff Primary Care Provider Address: [place], [address] NIKKI Ji Attending Provider Non-Staff Referring Provider Address: [address] [place], [address] CELL PHONE REPAIR TECHNICIAN Treatment Note CELL PHONE REPAIR TECHNICIAN Treatment Note Start: 05/04/21 15:48 Freq: Status: Active Protocol: Document 07/19/21 14:33 LNK (Rec: 07/19/21 16:45 LNK [id number]) Speech Pathology Treatment Note Session Time Visit Start Time 14:30 Visit Stop Time 15:30 Total Visit Minutes 60 Visit Information Visit Number 9 Plan of Care Dates 05/04/21-08/20/21 Setting Treatment Setting Outpatient Care Visit Type Note Type Treatment Note Next Note Type Next Note Type Treatment Note General Information Patient History Pt is a 60 year old male who presented for evaluation of assessment of aphasia secondary to early onset Alzheimers. Pt was accompanied by his , Kate . According to the pt and his , behavioral changes in pt 's presentation were observed by the pt's 2-3 years ago . In August 2020, she began to suspect something was wrong and sought medical assistance. Pt received formal diagnosis of early onset Alzheimer's Disease in November 2020. Pt was referred to this clinic for assessment of Aphasia as pt is unable to express himself or understand all that is said to him. He complains of word- finding difficulty, difficulty with formulating thoughts, confusion and memory problems. His describes her 's communication attempts as consisting of gestures, difficulty with verbal expression, halting and incomplete attempts to express his needs. She also reports noticing that her is more confused. Pt is retired [employer],taking early fpc as he was unable to carry out his job effectively . His has since stopped working to be home with her . Currently pt has a primary care physician in [place], and one Neurologist in [place] and another at the [facility]. [ End ] Subjective Identification Type Name,Date of Identification Reconciled With Medical Record Others Present Family Chief Complaint(s) Language,Cognitive Patient Knowledge/Awareness of CELL PHONE REPAIR TECHNICIAN Role Good in Treatment Parent/Caretake Knowledge/Awareness of Good CELL PHONE REPAIR TECHNICIAN Role in Treatment Objective Short Term Goals COMMUNICATION: NEW GOALS COMMUNICATION: 1) Pt will practice using common phrases using TXCOM patricia 3-5x daily as reported by pt/. 2) Pt will be able to say ADL phrases with v/v cuing as needed to meet needs and desires 6/10 opportunities as reported by pt/. COGNITION: 1) Pt / will create a centralized information hub using a white board listing important events, a calendar, chores list etc. Pt's keys, phone, etc will be located in [facility] information hub for consistency and convenience for the pt to find information . Goal Met 2) A picture book/memory book will be created by the pt and his . Pictures of family members, meaningful events, possessions such as a favorite car, etc. can be included to stimulate the pt's memory and provide cognitive stimulation. Ongoing 3) Caregiver education will be provided on how to assist the pt's expression/memory using strategies. Ongoing Pt will participate in cognitive exercises as instructed 3-5x/day as reported by pt/.Ongoing [ End ] Treatment Activities Rolly Love, his reported that they continue to work with naming activities and reading aloud at home. waiting for [place] for authorization and funding for AAC. targeted naming skills today with 4 scaffolding levels. pt was consistently needing a choice of 2 words to name picture correctly. Rolly gets very agitated and confused with these activites. He said he grew up with father that had very high expectations coupled with being in the [employer] and meeting expectations. Spent 2/3 of session counseling pt re: therapy process, his current status and abilities. AAC will ease anxiety and hopefully help Rolly communicate without stress. Assessment Patient Response to Treatment Excellent Rehab Potential Fair Impairments Identified Aphasia,Auditory Comprehension ,Cognitive-Linguistic Skills, Memory - Longterm,Memory - Short Term,Problem Solving Assessment of Improvement I hve not received an e-mail TXCOM as of tis dte. Kate will [facility] with [facility] Reviewed with Patient Goals,Home Exercise Program Patient/Caregiver Understanding Excellent Plan Therapeutic Contents Cognitive-Linguistic Training, Expressive Language Training Provided Patient/Caregiver Instruction Home Exercise Program,Plan of Care,Questions/Concerns
--- NOTE | 2021-11-06 10:07 | ST.OPDS ---
Visit Care Team Role Provider Type Krystyna Zeng MD Family Provider Non-Staff Primary Care Provider [facility] [place], [address] NIKKI Ji Attending Provider Non-Staff Referring Provider Address: [address], [place], [address] COMMERCIAL LINES ACCOUNT MANAGER Treatment Note COMMERCIAL LINES ACCOUNT MANAGER Treatment Note Start: 05/04/21 15:48 Freq: Status: Active Protocol: Document 11/06/21 10:04 ERNESTO (Rec: 11/06/21 10:07 LNK [id number]) Speech Pathology Treatment Note Visit Type Note Type Discharge Summary General Information Patient History Pt is a 60 year old male who presented for evaluation of assessment of aphasia secondary to early onset Alzheimers. Pt was accompanied by his , Kate . According to the pt and his , behavioral changes in pt 's presentation were observed by the pt's 2-3 years ago . In August 2020, she began to suspect something was wrong and sought medical assistance. Pt received formal diagnosis of early onset Alzheimer's Disease in November 2020. Pt was referred to this clinic for assessment of Aphasia as pt is unable to express himself or understand all that is said to him. He complains of word- finding difficulty, difficulty with formulating thoughts, confusion and memory problems. His describes her 's communication attempts as consisting of gestures, difficulty with verbal expression, halting and incomplete attempts to express his needs. She also reports noticing that her is more confused. Pt is retired [employer],taking early custodial as he was unable to carry out his job effectively . His has since stopped working to be home with her . Currently pt has a primary care physician in [place], and one Neurologist in [place] and another at the [facility]. [ End ] Objective Treatment Activities Rolly Kate, his reported that they continue to work with naming activities and reading aloud at home. waiting for [place] for authorization and funding for AAC. Pt has not been seen for therapy since 07/19/21. Will discharge at this time Plan Amount of Therapy Recommended No Further Therapy Frequency of Treatment No Further Therapy Therapy Recommendations Discharge from Speech Therapy
== END 2021-11-10 14:05 ==
LOC: SP 14:30
PROVIDERS: Family Provider Family Medicine; PCP Family Medicine; Referring Provider Nurse Practitioner Family; Visit Provider Nurse Practitioner Family
DX: R47.01 Aphasia (principal); G30.0 Alzheimer's disease with early onset
CPT/HCPCS: 92523; 97129; 97130

== ENCOUNTER 2022-04-02 09:21 | Emergency (ER) | payer OTHER, SELFPAY ==
[2022-04-02] VITALS (50 sets, daily range): BP systolic 99–150; BP diastolic 58–90; PULSE 51–102; RESP 12–27; TEMP 35.9; O2SAT 90–97
--- NOTE | 2022-04-02 09:31 | DI.CT.S_ITS ---
PROCEDURE: CT HEAD/BRAIN WO CON INDICATIONS: 'shaking' now resolved. Has h/o dementia TECHNIQUE: Noncontrast 4.5 mm thick angled axial sections acquired from the foramen magnum to the vertex, with coronal and sagittal reformats. For radiation dose reduction, the following was used: automated exposure control, adjustment of mA and/or kV according to patient size. COMPARISON: None. FINDINGS: Image quality: Excellent. CSF spaces: Basal cisterns are patent. No extra-axial fluid collections. The ventricles are symmetric in size and shape. Brain: No intracranial bleeds or masses. There is cerebral volume loss for age, with resultant ventricular and sulcal prominence. There are periventricular and deep white matter chronic small vessel ischemic changes. There is intracranial internal carotid artery atherosclerosis. Skull and face: Calvarium and visualized facial bones appear intact, without suspicious lesions. Sinuses: Mucosal thickening in bilateral ethmoid sinuses are seen. Rest of the sinuses and mastoids are clear. IMPRESSION: 1. No CT evidence of acute intracranial abnormalities. 2. Age related volume loss and mild white matter chronic small vessel ischemic changes. 3. Bilateral ethmoid sinusitis. Dictated by: Jeronimo Wakefield M.D. on 04/02/2022 at 10:10 Approved by: Jeronimo Wakefield M.D. on 04/02/2022 at 10:11
--- NOTE | 2022-04-02 09:31 | DI.RAD.S_ITS ---
PROCEDURE: XR CHEST 1V INDICATIONS: chest pain TECHNIQUE: One view of the chest was acquired. COMPARISON: None. FINDINGS: Surgical changes and devices: None. Lungs and pleura: Atelectasis/scarring in lateral aspect of left lung base is seen. Right lung is clear. No pleural effusions or pneumothorax. Mediastinum: Mediastinal contours appear normal. Heart size is normal. Bones and chest wall: No suspicious bony lesions. Overlying soft tissues appear unremarkable. IMPRESSION: Left basilar atelectasis/scarring. No definite focal infiltrate. No pleural effusion or pneumothorax. Dictated by: Jeronimo Wakefield M.D. on 04/02/2022 at 9:49 Approved by: Jeronimo Wakefield M.D. on 04/02/2022 at 9:52
--- NOTE | 2022-04-02 09:41 | ED.CHESTPAIN ---
HPI - Chest Pain General Chief Complaint: Chest Pain Stated Complaint: possible seizure/has confusion Time Seen by Provider: 04/02/22 09:41 Source: EMS Mode of arrival: EMS History of Present Illness HPI narrative: Patient is a 61-year-old male history of CVA with aphasia presenting today after possible seizure, patient has ongoing dementia as well. says that she woke up to him shaking. Difficult to tell if he was confused he has speech and communication problems but does not seem to have weakness. He is currently afebrile. Difficult to get history from. Not on anticoagulation. at bedside states that she heard him making a noise she found him with his arms flexed and close to his chest and he was shaking all over. It lasted for 2-3 minutes. Difficult to tell if he was more confused than his baseline but she thought it took him a little bit to get back to his baseline. Now is at his baseline mental status. She states that they have been ill for about the 10 days with a cold. No significant difficulty breathing and he has been tolerating fluids. He is currently afebrile. Related Data Previous Rx's Medication Instructions Recorded levetiracetam 500 mg tablet 500 mg PO BID 90 days #180 tabs 04/02/22 Allergies Allergy/AdvReac Type Severity Reaction Status Date / Time No Known Drug Allergies Allergy Verified 04/02/22 09:33 Review of Systems Review of Systems ROS Unobtainable: Unobtainable due to medical condition Exam Initial Vital Signs Initial Vital Signs: Vital Signs Pulse Rate 79 04/02/22 09:25 Pulse Oximetry 91 04/02/22 09:25 Oxygen Delivery Method 04/02/22 09:25 GENERAL: Alert 61-year-old male HEENT: Head atraumatic,EOMI, pupils reactive, face symmetric, moist mucous membranes CARDIOVASCULAR: Regular rate and rhythm without murmurs, rubs or gallops. RESPIRATORY: Decreased breath sounds on right no respiratory distress or tachypnea no wheezing rales or rhonchi ABDOMEN: Soft, nontender. Normoactive bowel sounds all 4 quadrants. No guarding or rebound. EXTREMITIES: Normal range of motion, no clubbing or edema. Neurovascularly intact NEUROLOGICAL: Alert to person unable to follow commands but moving all extremities. Does not know year date or age SKIN: Warm, dry, no laceration, no petechiae, no rashes or lesions. Course Orders Ordered: Discontinued Medications Acetaminophen (Acetaminophen 325 Mg Tablet) 650 mg PO Q6H PRN PRN Reason: Fever/Mild Pain (1-3) Albuterol (Albuterol 2.5 Mg/3 Ml Neb (Adult)) 2.5 mg INH Q4HRWA [facility] Albuterol (Albuterol 2.5 Mg/3 Ml Neb (Adult)) 2.5 mg INH Q2H PRN PRN Reason: shortness of breath Albuterol (Albuterol 2.5 Mg/3 Ml Neb (Adult)) 2.5 mg INH Q4HRWA [facility] Dexamethasone (Dexamethasone 10 Mg/Ml Vial) 6 mg IV NOW ONE Stop: 04/02/22 15:25 Last Admin: 04/02/22 15:37 Dose: 6 mg Documented By: REUBEN Dexamethasone (Dexamethasone 10 Mg/Ml Vial) 6 mg IV DAILY [facility] Stop: 04/12/22 08:59 Enoxaparin Sodium (Enoxaparin 40 Mg/0.4 Ml Syringe) 40 mg SUBCUT DAILY [facility] Guaifenesin (Guaifenesin Er 600 Mg Tab) 600 mg PO BID [facility] Sodium Chloride (Normal Saline 0.9%) 1,000 mls @ 1,000 mls/hr IV BOLUS ONE Stop: 04/02/22 11:29 Last Infusion: 04/02/22 12:01 Dose: 0 mls/hr Documented By: Admin: 04/02/22 10:43 Dose: 1,000 mls/hr Documented By: STEVEN Levetiracetam 1,000 mg/ Sodium (Chloride) 110 mls @ 440 mls/hr IV NOW ONE Stop: 04/02/22 15:25 Last Infusion: 04/02/22 16:09 Dose: 0 mls/hr Documented By: Admin: 04/02/22 15:37 Dose: 440 mls/hr Documented By: REUBEN Remdesivir 200 mg/ Sodium (Chloride) 250 mls @ 250 mls/hr IV NOW ONE Stop: 04/02/22 15:25 Last Admin: 04/02/22 17:40 Dose: Not Given Documented By: REUBEN Remdesivir 100 mg/ Sodium (Chloride) 250 mls @ 250 mls/hr IV DAILY [facility] Stop: 04/06/22 09:59 Levetiracetam (Levetiracetam 250 Mg Tablet) 500 mg PO BID MANDIE Melatonin (Melatonin 3 Mg Tablet) 6 mg PO BEDTIME PRN PRN Reason: Insomnia Naloxone HCl (Naloxone 0.4 Mg/Ml Vial) 0.2 mg IV Q2MIN PRN PRN Reason: Opiate Reversal Polyethylene Glycol (Polyethylene Glycol 3350 17 Gm Powd.Pack) 17 gm PO DAILY PRN PRN Reason: Constipation Sennosides (Sennosides 8.6 Mg Tablet) 8.6 mg PO BID PRN PRN Reason: Constipation Vital Signs Vital signs: Vital Signs - 8 hr 04/02/22 13:15 04/02/22 13:15 04/02/22 13:28 Pulse Rate 60 59 L Respiratory Rate 12 16 Blood Pressure 99/59 L Pulse Oximetry 96 97 Oxygen Delivery Method Nasal Cannula Oxygen Flow Rate 2 04/02/22 13:28 04/02/22 13:29 04/02/22 13:30 Pulse Rate 57 L Respiratory Rate 16 Blood Pressure 114/69 106/69 Pulse Oximetry 97 Oxygen Delivery Method Oxygen Flow Rate 04/02/22 13:59 04/02/22 13:30 04/02/22 13:45 Pulse Rate 58 L 57 L Respiratory Rate 17 14 Blood Pressure Pulse Oximetry 93 96 96 Oxygen Delivery Method Room Air Oxygen Flow Rate 04/02/22 14:00 04/02/22 14:00 04/02/22 14:15 Pulse Rate 57 L 56 L Respiratory Rate 16 13 Blood Pressure 115/70 Pulse Oximetry 94 95 Oxygen Delivery Method Oxygen Flow Rate 04/02/22 14:30 04/02/22 14:30 04/02/22 14:45 Pulse Rate 54 L 64 Respiratory Rate 14 16 Blood Pressure 112/67 Pulse Oximetry 96 96 Oxygen Delivery Method Room Air Oxygen Flow Rate 04/02/22 15:00 04/02/22 15:12 04/02/22 15:12 Pulse Rate 62 64 Respiratory Rate 12 14 Blood Pressure 102/69 Pulse Oximetry 93 93 Oxygen Delivery Method Room Air Oxygen Flow Rate 04/02/22 15:15 04/02/22 15:30 04/02/22 15:30 Pulse Rate 61 64 Respiratory Rate 13 13 Blood Pressure 105/66 Pulse Oximetry 94 94 Oxygen Delivery Method Oxygen Flow Rate 04/02/22 15:45 04/02/22 16:00 04/02/22 16:00 Pulse Rate 66 62 Respiratory Rate 13 12 Blood Pressure 104/74 Pulse Oximetry 96 96 Oxygen Delivery Method Oxygen Flow Rate 04/02/22 16:15 04/02/22 16:30 04/02/22 16:45 Pulse Rate 62 60 54 L Respiratory Rate 13 13 13 Blood Pressure Pulse Oximetry 95 95 Oxygen Delivery Method Oxygen Flow Rate 04/02/22 17:00 04/02/22 17:01 04/02/22 17:07 Pulse Rate 52 L 51 L Respiratory Rate 12 13 Blood Pressure 121/88 Pulse Oximetry Oxygen Delivery Method Oxygen Flow Rate 04/02/22 17:07 04/02/22 17:15 04/02/22 17:30 Pulse Rate 71 78 60 Respiratory Rate Blood Pressure Pulse Oximetry 95 95 94 Oxygen Delivery Method Oxygen Flow Rate 04/02/22 17:35 04/02/22 17:35 04/02/22 17:45 Pulse Rate 62 72 Respiratory Rate Blood Pressure 111/73 Pulse Oximetry 93 94 Oxygen Delivery Method Oxygen Flow Rate 04/02/22 18:00 04/02/22 18:00 04/02/22 18:15 Pulse Rate 61 70 Respiratory Rate Blood Pressure 116/78 Pulse Oximetry 95 95 Oxygen Delivery Method Room Air Oxygen Flow Rate 04/02/22 18:55 Pulse Rate 69 Respiratory Rate Blood Pressure Pulse Oximetry 95 Oxygen Delivery Method Oxygen Flow Rate MDM - Chest Pain Lab Data Result diagrams: 04/02/22 09:50 04/02/22 09:50 Labs: Lab Results 04/02/22 04/02/22 04/02/22 Range/Units 09:50 09:50 09:50 WBC 5.2 (4.5-11.0) X10^3/uL RBC 5.19 (4.5-5.9) X10^6/uL Hgb 15.5 (13.5-17.5) g/dL Hct 45.2 (41-53) % MCV 87.2 (80-100) fL MCH 29.9 (26-34) PG MCHC 34.3 (30-36) % RDW 13.1 (11.6-14.8) % Plt Count 183 (150-400) X10^3/uL Neut % (Auto) 66.3 (50-75) % Lymph % (Auto) 27.7 (25-40) % Hart % (Auto) 3.7 (3-14) % Eos % (Auto) 2.0 (2-4) % Baso % (Auto) 0.3 (0-2) % Neut # (Auto) 3400 (0897-5705) /uL Lymph # (Auto) 1400 (4725-3462) /uL Hart # (Auto) 200 (0-900) /uL Eos # (Auto) 100 (0-450) /uL Baso # (Auto) 0 (0-100) /uL PT 12.0 (10.1-12.7) SECONDS INR 1.0 (0.9-1.3) APTT 25 L (26-36) SECONDS D-Dimer (<500) ng/ml Sodium 136 L (137-145) mmol/L Potassium 3.7 (3.4-5.1) mmol/L Chloride 105 (98-107) mmol/L Carbon Dioxide 19 L (22-32) mmol/L BUN 13 (9-20) mg/dL Creatinine 0.95 (0.66-1.25) mg/dL Estimated GFR > 60 (>60) mL/min BUN/Creatinine Ratio 13.7 (6-22) Glucose 165 H (80-110) mg/dL Lactate (0.7-2.1) mmol/L Calcium 8.4 (8.4-10.2) mg/dL Magnesium 2.3 (1.6-2.3) mg/dL Total Bilirubin 0.7 (0.2-1.3) mg/dL AST 31 (17-59) IU/L ALT 38 (<50) IU/L Alkaline Phosphatase 72 (38-126) U/L Total Creatine Kinase 143 (55-170) U/L CK-MB (CK-2) 1.18 (<2.37) ng/mL CK-MB (CK-2) Rel Index 0.8 L (1.5-5.0) % Troponin I < 0.012 (0.01-0.034) ng/mL NT-Pro-B Natriuret Pep (<125) pg/mL Total Protein 6.8 (6.3-8.2) g/dL Albumin 3.9 (3.5-5.0) g/dL Globulin 2.9 (1.7-4.1) g/dL Albumin/Globulin Ratio 1.3 (1.0-2.8) Lipase 114 (23-300) U/L TSH (0.47-4.68) uIU/mL Prolactin (3.7-17.9) ng/mL SARS-CoV-2 (PCR) (Negative) Influenza A (RT-PCR) (NEGATIVE) Influenza B (RT-PCR) (NEGATIVE) RSV (PCR) (Negative) 04/02/22 04/02/22 04/02/22 Range/Units 09:50 09:50 09:50 WBC (4.5-11.0) X10^3/uL RBC (4.5-5.9) X10^6/uL Hgb (13.5-17.5) g/dL Hct (41-53) % MCV (80-100) fL MCH (26-34) PG MCHC (30-36) % RDW (11.6-14.8) % Plt Count (150-400) X10^3/uL Neut % (Auto) (50-75) % Lymph % (Auto) (25-40) % Hart % (Auto) (3-14) % Eos % (Auto) (2-4) % Baso % (Auto) (0-2) % Neut # (Auto) (3042-8753) /uL Lymph # (Auto) (8626-3058) /uL Hart # (Auto) (0-900) /uL Eos # (Auto) (0-450) /uL Baso # (Auto) (0-100) /uL PT (10.1-12.7) SECONDS INR (0.9-1.3) APTT (26-36) SECONDS D-Dimer 1476 H (<500) ng/ml Sodium (137-145) mmol/L Potassium (3.4-5.1) mmol/L Chloride (98-107) mmol/L Carbon Dioxide (22-32) mmol/L BUN (9-20) mg/dL Creatinine (0.66-1.25) mg/dL Estimated GFR (>60) mL/min BUN/Creatinine Ratio (6-22) Glucose (80-110) mg/dL Lactate 3.3 H (0.7-2.1) mmol/L Calcium (8.4-10.2) mg/dL Magnesium (1.6-2.3) mg/dL Total Bilirubin (0.2-1.3) mg/dL AST (17-59) IU/L ALT (<50) IU/L Alkaline Phosphatase (38-126) U/L Total Creatine Kinase (55-170) U/L CK-MB (CK-2) (<2.37) ng/mL CK-MB (CK-2) Rel Index (1.5-5.0) % Troponin I (0.01-0.034) ng/mL NT-Pro-B Natriuret Pep (<125) pg/mL Total Protein (6.3-8.2) g/dL Albumin (3.5-5.0) g/dL Globulin (1.7-4.1) g/dL Albumin/Globulin Ratio (1.0-2.8) Lipase (23-300) U/L TSH (0.47-4.68) uIU/mL Prolactin 12.1 (3.7-17.9) ng/mL SARS-CoV-2 (PCR) (Negative) Influenza A (RT-PCR) (NEGATIVE) Influenza B (RT-PCR) (NEGATIVE) RSV (PCR) (Negative) 04/02/22 04/02/22 04/02/22 Range/Units 09:50 09:50 09:50 WBC (4.5-11.0) X10^3/uL RBC (4.5-5.9) X10^6/uL Hgb (13.5-17.5) g/dL Hct (41-53) % MCV (80-100) fL MCH (26-34) PG MCHC (30-36) % RDW (11.6-14.8) % Plt Count (150-400) X10^3/uL Neut % (Auto) (50-75) % Lymph % (Auto) (25-40) % Hart % (Auto) (3-14) % Eos % (Auto) (2-4) % Baso % (Auto) (0-2) % Neut # (Auto) (2518-3682) /uL Lymph # (Auto) (5200-7007) /uL Hart # (Auto) (0-900) /uL Eos # (Auto) (0-450) /uL Baso # (Auto) (0-100) /uL PT (10.1-12.7) SECONDS INR (0.9-1.3) APTT (26-36) SECONDS D-Dimer (<500) ng/ml Sodium (137-145) mmol/L Potassium (3.4-5.1) mmol/L Chloride (98-107) mmol/L Carbon Dioxide (22-32) mmol/L BUN (9-20) mg/dL Creatinine (0.66-1.25) mg/dL Estimated GFR (>60) mL/min BUN/Creatinine Ratio (6-22) Glucose (80-110) mg/dL Lactate (0.7-2.1) mmol/L Calcium (8.4-10.2) mg/dL Magnesium (1.6-2.3) mg/dL Total Bilirubin (0.2-1.3) mg/dL AST (17-59) IU/L ALT (<50) IU/L Alkaline Phosphatase (38-126) U/L Total Creatine Kinase (55-170) U/L CK-MB (CK-2) (<2.37) ng/mL CK-MB (CK-2) Rel Index (1.5-5.0) % Troponin I (0.01-0.034) ng/mL NT-Pro-B Natriuret Pep 66 (<125) pg/mL Total Protein (6.3-8.2) g/dL Albumin (3.5-5.0) g/dL Globulin (1.7-4.1) g/dL Albumin/Globulin Ratio (1.0-2.8) Lipase (23-300) U/L TSH 4.66 (0.47-4.68) uIU/mL Prolactin (3.7-17.9) ng/mL SARS-CoV-2 (PCR) Positive H (Negative) Influenza A (RT-PCR) Flu a negative (NEGATIVE) Influenza B (RT-PCR) Flu b negative (NEGATIVE) RSV (PCR) Negative (Negative) 04/02/22 Range/Units 12:15 WBC (4.5-11.0) X10^3/uL RBC (4.5-5.9) X10^6/uL Hgb (13.5-17.5) g/dL Hct (41-53) % MCV (80-100) fL MCH (26-34) PG MCHC (30-36) % RDW (11.6-14.8) % Plt Count (150-400) X10^3/uL Neut % (Auto) (50-75) % Lymph % (Auto) (25-40) % Hart % (Auto) (3-14) % Eos % (Auto) (2-4) % Baso % (Auto) (0-2) % Neut # (Auto) (0414-7959) /uL Lymph # (Auto) (0195-4279) /uL Hart # (Auto) (0-900) /uL Eos # (Auto) (0-450) /uL Baso # (Auto) (0-100) /uL PT (10.1-12.7) SECONDS INR (0.9-1.3) APTT (26-36) SECONDS D-Dimer (<500) ng/ml Sodium (137-145) mmol/L Potassium (3.4-5.1) mmol/L Chloride (98-107) mmol/L Carbon Dioxide (22-32) mmol/L BUN (9-20) mg/dL Creatinine (0.66-1.25) mg/dL Estimated GFR (>60) mL/min BUN/Creatinine Ratio (6-22) Glucose (80-110) mg/dL Lactate 1.1 (0.7-2.1) mmol/L Calcium (8.4-10.2) mg/dL Magnesium (1.6-2.3) mg/dL Total Bilirubin (0.2-1.3) mg/dL AST (17-59) IU/L ALT (<50) IU/L Alkaline Phosphatase (38-126) U/L Total Creatine Kinase (55-170) U/L CK-MB (CK-2) (<2.37) ng/mL CK-MB (CK-2) Rel Index (1.5-5.0) % Troponin I (0.01-0.034) ng/mL NT-Pro-B Natriuret Pep (<125) pg/mL Total Protein (6.3-8.2) g/dL Albumin (3.5-5.0) g/dL Globulin (1.7-4.1) g/dL Albumin/Globulin Ratio (1.0-2.8) Lipase (23-300) U/L TSH (0.47-4.68) uIU/mL Prolactin (3.7-17.9) ng/mL SARS-CoV-2 (PCR) (Negative) Influenza A (RT-PCR) (NEGATIVE) Influenza B (RT-PCR) (NEGATIVE) RSV (PCR) (Negative) Urine Dip Bedside Urine Glucose Negative Bedside Urine Bilirubin - Negative Bedside Urine Ketone - Negative Urine Specific Benton 1.015 Bedside Urine Occult Blood - Negative Bedside Urine pH 6.0 Bedside Urine Protein - Negative Bedside Urine Urobilinogen - Negative Bedside Urine Nitrite - Negative Bedside Urine Leukocytes - Negative Esterase Imaging Data CT scan - head: Radiologist's Impression: CT Scan Report Signed Patient: Homero Rizvi MR#: [id number] : 1960 Acct:[id number] Age/Sex: 61 / M Date of Service: 04/02/22 Loc: ED Accession Number: [id number] ?? Procedure: CT head/brain wo con Ordering Provider: Marily Garza D.O. PROCEDURE:? CT HEAD/BRAIN WO CON ? INDICATIONS:? 'shaking' now resolved. Has h/o dementia ? TECHNIQUE:? Noncontrast 4.5 mm thick angled axial sections acquired from the foramen magnum to the vertex, with coronal and sagittal reformats.? For radiation dose reduction, the following was used:? automated exposure control, adjustment of mA and/or kV according to patient size.? ? COMPARISON:? None. ? FINDINGS:? Image quality:? Excellent.? ? CSF spaces:? Basal cisterns are patent.? No extra-axial fluid collections.? The ventricles are symmetric in size and shape.? ? Brain:? No intracranial bleeds or masses.? There is cerebral volume loss for age, with resultant ventricular and sulcal prominence.? There are periventricular and deep white matter chronic small vessel ischemic changes.? There is intracranial internal carotid artery atherosclerosis.? ? Skull and face:? Calvarium and visualized facial bones appear intact, without suspicious lesions.? ? Sinuses:? Mucosal thickening in bilateral ethmoid sinuses are seen.? Rest of the sinuses and mastoids are clear.? ? IMPRESSION:? 1. No CT evidence of acute intracranial abnormalities. 2. Age related volume loss and mild white matter chronic small vessel ischemic changes. 3. Bilateral ethmoid sinusitis.? ? ? Dictated by: Jeronimo Wakefield M.D. on 04/02/2022 at 10:10? CTA - brain/neck: Radiologist's Impression: [place] [id number] CT Scan Report Signed Patient: Homero Rizvi MR#: [id number] : 1960 Acct:[id number] Age/Sex: 61 / M Date of Service: 04/02/22 Loc: ED Accession Number: [id number] ?? Procedure: CT angio chest PE protocol Ordering Provider: Marily Garza D.O. PROCEDURE:? CT ANGIO CHEST PE PROTOCOL ? INDICATIONS:? hypoxia with covid ? TECHNIQUE:? After the administration of intravenous contrast, 2 mm thick sections acquired from the pulmonary apices to the posterior costophrenic angles.? 3-dimensional maximum intensity projection (MIP) coronal and sagittal reformats were then acquired through the thorax.? For radiation dose reduction, the following was used:? automated exposure control, adjustment of mA and/or kV according to patient size.? ? COMPARISON:? None. ? FINDINGS:? Image quality:? Excellent.? ? Pulmonary arteries:? Pulmonary arteries are mildly prominent in size, and demonstrate no intraluminal filling defects to suggest central pulmonary embolism.? ? Lungs and pleura:? Dependent atelectasis in posterior aspect of bilateral lung rinaldi are seen.? Small bibasilar posterior infiltrates cannot be entirely excluded..? No pleural effusions or pneumothorax.? Central and peripheral airways are patent.? ? Mediastinum:? Heart size is enlarged, without pericardial effusion.? No mediastinal or hilar adenopathy.? Thoracic aorta is normal in caliber and enhancement.? Esophagus is normal in caliber, without hiatal hernia.? ? Bones and chest wall:? No suspicious bony lesions.? Ribs and thoracic spine appear intact throughout.? Thyroid gland is within normal limits.? No axillary or supraclavicular adenopathy.? ? Abdomen:? Visualized upper abdominal solid organs appear normal in the early arterial phase of enhancement.? ? IMPRESSION:? 1. No evidence of pulmonary emboli.? No thoracic aortic aneurysm or gross dissection.? Mild prominence of main pulmonary artery which can be seen associated with pulmonary vascular hypertension. 2. Dependent atelectasis in posterior aspect of bilateral lung rinaldi.? Small bibasilar infiltrate/atelectasis cannot be excluded.? No pleural effusion or pneumothorax.? Airway is patent. 3. Cardiomegaly, no pericardial effusion.? No mediastinal or hilar lymphadenopathy by size criteria.? ? ? Dictated by: Jeronimo Wakefield M.D. on 04/02/2022 at 13:01 ? Chest x-ray: Radiologist's Impression: [place] [id number] CT Scan Report Signed Patient: Homero Rizvi MR#: [id number] : 1960 Acct:[id number] Age/Sex: 61 / M Date of Service: 04/02/22 Loc: ED Accession Number: [id number] ?? Procedure: CT angio chest PE protocol Ordering Provider: Marily Garza D.O. PROCEDURE:? CT ANGIO CHEST PE PROTOCOL ? INDICATIONS:? hypoxia with covid ? TECHNIQUE:? After the administration of intravenous contrast, 2 mm thick sections acquired from the pulmonary apices to the posterior costophrenic angles.? 3-dimensional maximum intensity projection (MIP) coronal and sagittal reformats were then acquired through the thorax.? For radiation dose reduction, the following was used:? automated exposure control, adjustment of mA and/or kV according to patient size.? ? COMPARISON:? None. ? FINDINGS:? Image quality:? Excellent.? ? Pulmonary arteries:? Pulmonary arteries are mildly prominent in size, and demonstrate no intraluminal filling defects to suggest central pulmonary embolism.? ? Lungs and pleura:? Dependent atelectasis in posterior aspect of bilateral lung rinaldi are seen.? Small bibasilar posterior infiltrates cannot be entirely excluded..? No pleural effusions or pneumothorax.? Central and peripheral airways are patent.? ? Mediastinum:? Heart size is enlarged, without pericardial effusion.? No mediastinal or hilar adenopathy.? Thoracic aorta is normal in caliber and enhancement.? Esophagus is normal in caliber, without hiatal hernia.? ? Bones and chest wall:? No suspicious bony lesions.? Ribs and thoracic spine appear intact throughout.? Thyroid gland is within normal limits.? No axillary or supraclavicular adenopathy.? ? Abdomen:? Visualized upper abdominal solid organs appear normal in the early arterial phase of enhancement.? ? IMPRESSION:? 1. No evidence of pulmonary emboli.? No thoracic aortic aneurysm or gross dissection.? Mild prominence of main pulmonary artery which can be seen associated with pulmonary vascular hypertension. 2. Dependent atelectasis in posterior aspect of bilateral lung rinaldi.? Small bibasilar infiltrate/atelectasis cannot be excluded.? No pleural effusion or pneumothorax.? Airway is patent. 3. Cardiomegaly, no pericardial effusion.? No mediastinal or hilar lymphadenopathy by size criteria.? ? ? Dictated by: Jeronimo Wakefield M.D. on 04/02/2022 at 13:01 ? CT scan - chest: Radiologist's Impression: [place] [id number] XRay Report Signed Patient: Homero Rizvi MR#: [id number] : 1960 Acct:[id number] Age/Sex: 61 / M Date of Service: 04/02/22 Loc: ED Accession Number: [id number] ?? Procedure: XR chest 1V Ordering Provider: Marily Garza D.O. PROCEDURE:? XR CHEST 1V ? INDICATIONS:? chest pain ? TECHNIQUE:? One view of the chest was acquired.? ? COMPARISON:? None. ? FINDINGS:? ? Surgical changes and devices:? None.? ? Lungs and pleura:? Atelectasis/scarring in lateral aspect of left lung base is seen.? Right lung is clear.? No pleural effusions or pneumothorax.? ? Mediastinum:? Mediastinal contours appear normal.? Heart size is normal.? ? Bones and chest wall:? No suspicious bony lesions.? Overlying soft tissues appear unremarkable.? ? IMPRESSION:? Left basilar atelectasis/scarring.? No definite focal infiltrate.? No pleural effusion or pneumothorax. ? ? Dictated by: Jeronimo Wakefield M.D. on 04/02/2022 at 9:49? ECG Data Interpretation: Sinus rhythm rate 75 PA 150, QRS76, QTC [address] changes noted in lead 3 with Q-waves lots of artifact noted no reciprocal changes. [facility] Narrative Medical decision making narrative: Patient presents today with possible seizure. Although his prolactin is negative he is mildly acidotic with a bicarb of 19, and lactate of 3.3. Head CT and CT angio were both negative. Possible he has new onset seizure. However he is also positive for COVID. Possible it was also rigors and fever and sepsis. He is requiring 1-2 L of oxygen for his COVID infection. He is not hypotensive or tachycardic. He seems to be stable and at his baseline. Attempted code status with she will think about it. Patient's other blood work is overall reassuring. Patient's lactate did improve with minimal interventions. Patient is given remdesivir for COVID. Patient does not follow commands therefore NIH scale is extremely difficult. He has no cranial nerve deficits that are appreciated, except for the ongoing aphasia. Dr. Beth updated on symptoms. Agrees with empirically treated with loading Keppra for possible seizures and remdesivir and admission for COVID. Discharge Plan Departure Patient Disposition: Home Clinical Impression: Seizure, COVID Prescriptions: New levetiracetam 500 mg tablet 500 mg PO BID 90 Days Qty: 180 0RF Referrals: Krystyna Zeng MD [Primary Care Provider] - 2 Weeks Visit Report Forms: Patient Portal/API
[2022-04-02 10:04] LABS: Add Manual Diff / Slide Review NO; Basophils Absolute Auto 0 /uL (0-100); Basophils Percent Auto 0.3 % (0-2); Eosinophils Absolute Auto 100 /uL (0-450); Hematocrit 45.2 % (41-53); Hemoglobin 15.5 g/dL (13.5-17.5); Lymphocytes Absolute Auto 1400 /uL (1100-4500); Lymphocytes Percent Auto 27.7 % (25-40); Mean Corpuscular HGB Conc 34.3 % (30-36); Mean Corpuscular Hemoglobin 29.9 PG (26-34); Mean Corpuscular Volume 87.2 fL (80-100); Monocytes Absolute Auto 200 /uL (0-900); Monocytes Percent Auto 3.7 % (3-14); Neutrophils Absolute Auto 3400 /uL (1500-7000); Neutrophils Percent Auto 66.3 % (50-75); Platelet Count 183 X10^3/uL (150-400); Red Blood Cell Count 5.19 X10^6/uL (4.5-5.9); Red Cell Distribution Width 13.1 % (11.6-14.8); White Blood Cell Count 5.2 X10^3/uL (4.5-11.0)
[2022-04-02 10:16] LABS: PTT Partial Thromboplastin Tim 25 SECONDS (26-36)
[2022-04-02 10:19] LABS: D Dimer 1476 ng/ml (<500)
[2022-04-02 10:24] LABS: Alanine Aminotransferase 38 IU/L (<50); Albumin 3.9 g/dL (3.5-5.0); Albumin Globulin Ratio 1.3 (1.0-2.8); Alkaline Phosphatase 72 U/L (38-126); Aspartate Aminotransferase 31 IU/L (17-59); BUN Creatinine Ratio 13.7 (6-22); Bilirubin Total 0.7 mg/dL (0.2-1.3); Blood Urea Nitrogen 13 mg/dL (9-20); Calcium 8.4 mg/dL (8.4-10.2); Carbon Dioxide 19 mmol/L (22-32); Chloride 105 mmol/L (98-107); Creatine Kinase 143 U/L (55-170); Estimated Glomerular Filt Rate > 60 mL/min (>60); Globulin 2.9 g/dL (1.7-4.1); Glucose 165 mg/dL (80-110); HEMOLYSIS 15 (0-50); Lactate (Lactic Acid) 3.3 mmol/L (0.7-2.1); Lipase 114 U/L (23-300); Magnesium 2.3 mg/dL (1.6-2.3); Potassium 3.7 mmol/L (3.4-5.1); Sodium 136 mmol/L (137-145); Total Protein 6.8 g/dL (6.3-8.2)
[2022-04-02 10:33] LABS: NT-proBNP (BNP-Adult 18+) 66 pg/mL (<125)
[2022-04-02 10:35] LABS: Troponin I < 0.012 ng/mL (0.01-0.034)
[2022-04-02 10:37] LABS: Influenza A - CEPHEID Flu A NEGATIVE (NEGATIVE); Influenza B - CEPHEID Flu B NEGATIVE (NEGATIVE); Respiratory Syncytial Virus Negative (Negative)
[2022-04-02 10:38] LABS: COVID-19 CEPHEID 4-PLEX PCR POSITIVE (Negative)
[2022-04-02 10:39] LABS: CKMB % Relative Index 0.8 % (1.5-5.0); Creatine Kinase MB 1.18 ng/mL (<2.37)
[2022-04-02 10:41] LABS: Prolactin 12.1 ng/mL (3.7-17.9)
[2022-04-02] MEDS: SODIUM CHLORIDE 0.9% 1,000 ML 1000 ML IV (10:43)
--- NOTE | 2022-04-02 11:55 | DI.CT.S_ITS ---
PROCEDURE: CT ANGIO CHEST PE PROTOCOL INDICATIONS: hypoxia with covid TECHNIQUE: After the administration of intravenous contrast, 2 mm thick sections acquired from the pulmonary apices to the posterior costophrenic angles. 3-dimensional maximum intensity projection (MIP) coronal and sagittal reformats were then acquired through the thorax. For radiation dose reduction, the following was used: automated exposure control, adjustment of mA and/or kV according to patient size. COMPARISON: None. FINDINGS: Image quality: Excellent. Pulmonary arteries: Pulmonary arteries are mildly prominent in size, and demonstrate no intraluminal filling defects to suggest central pulmonary embolism. Lungs and pleura: Dependent atelectasis in posterior aspect of bilateral lung rinaldi are seen. Small bibasilar posterior infiltrates cannot be entirely excluded.. No pleural effusions or pneumothorax. Central and peripheral airways are patent. Mediastinum: Heart size is enlarged, without pericardial effusion. No mediastinal or hilar adenopathy. Thoracic aorta is normal in caliber and enhancement. Esophagus is normal in caliber, without hiatal hernia. Bones and chest wall: No suspicious bony lesions. Ribs and thoracic spine appear intact throughout. Thyroid gland is within normal limits. No axillary or supraclavicular adenopathy. Abdomen: Visualized upper abdominal solid organs appear normal in the early arterial phase of enhancement. IMPRESSION: 1. No evidence of pulmonary emboli. No thoracic aortic aneurysm or gross dissection. Mild prominence of main pulmonary artery which can be seen associated with pulmonary vascular hypertension. 2. Dependent atelectasis in posterior aspect of bilateral lung rinaldi. Small bibasilar infiltrate/atelectasis cannot be excluded. No pleural effusion or pneumothorax. Airway is patent. 3. Cardiomegaly, no pericardial effusion. No mediastinal or hilar lymphadenopathy by size criteria. Dictated by: Jeronimo Wakefield M.D. on 04/02/2022 at 13:01 Approved by: Jeronimo Wakefield M.D. on 04/02/2022 at 13:04
[2022-04-02 11:57] LABS: Reflexed Lactate in 2 Hours Y
[2022-04-02 12:37] LABS: Lactate 2HR (Lactic Acid Rflx) 1.1 mmol/L (0.7-2.1)
[2022-04-02] MEDS: DEXAMETHASONE 10 MG/ML VIAL 6 MG IV (15:37)
[2022-04-02] MEDS: levETIRAcetam 1,000 MG in SODIUM CHLORIDE 0.9% 100 ML 440 MG IV (15:37)
--- NOTE | 2022-04-02 18:17 | PM.HP.1 ---
History of Present Illness History of Present Illness Date Patient Seen: 04/02/22 Time Patient Seen: 18:17 Chief complaint: possible seizure/has confusion Narrative: Homero Rizvi is a 61yo M with PMH of stroke resulting in vascular dementia who presents with possible seizure and found to be COVID positive. Patient's at bedside and says they have had a cold for 10 days and have been quarantining since then. Then this morning patient had a sudden brief episode of shaking which appeared to be a seizure. says he had clenched teeth and some blood ran down his cheek like he bit his lip. He then had some grogginess following this. This is why she brought him in. Patient initially on 2L O2 in the ED but weaned off after a few hours. Spoke with who was willing to take patient home given no need for COVID treatment. She agreed with this plan. Patient History Family & Social History Safety & Behavioral: Feels Safe in Current Yes Environment Been Physically Hurt or No Threatened By a Person Meds Home Medications and Allergies Home Medications Medication Instructions Recorded Confirmed Type levetiracetam 500 mg tablet 500 mg PO BID 90 days #180 tabs 04/02/22 Rx Allergies Allergy/AdvReac Type Severity Reaction Status Date / Time No Known Drug Allergies Allergy Verified 04/02/22 09:33 Review of Systems Review of Systems Narrative: All other systems reviewed with the patient and are negative unless otherwise stated. Exam Vital Signs (past 8 hours): - 04/02/22 10:30 04/02/22 10:30 04/02/22 10:45 Pulse Rate 67 Respiratory Rate 14 Blood Pressure 103/70 106/70 Pulse Oximetry 94 Oxygen Delivery Method Oxygen Flow Rate 04/02/22 10:45 04/02/22 11:00 04/02/22 11:00 Pulse Rate 68 69 Respiratory Rate 14 19 Blood Pressure 122/78 Pulse Oximetry 94 Oxygen Delivery Method Nasal Cannula Oxygen Flow Rate 2 04/02/22 11:15 04/02/22 11:15 04/02/22 11:30 Pulse Rate 63 Respiratory Rate 17 Blood Pressure 113/75 125/75 Pulse Oximetry 96 Oxygen Delivery Method Oxygen Flow Rate 04/02/22 11:30 04/02/22 11:45 04/02/22 11:46 Pulse Rate 73 89 Respiratory Rate 21 26 H Blood Pressure 150/89 H Pulse Oximetry 97 95 Oxygen Delivery Method Oxygen Flow Rate 04/02/22 11:46 04/02/22 12:00 04/02/22 12:15 Pulse Rate 102 H 81 62 Respiratory Rate 27 H 19 18 Blood Pressure Pulse Oximetry 94 95 95 Oxygen Delivery Method Nasal Cannula Oxygen Flow Rate 2 04/02/22 12:30 04/02/22 12:51 04/02/22 12:52 Pulse Rate 63 68 Respiratory Rate 16 Blood Pressure 108/63 Pulse Oximetry 96 Oxygen Delivery Method Oxygen Flow Rate 04/02/22 12:52 04/02/22 13:00 04/02/22 13:00 Pulse Rate 67 62 Respiratory Rate 18 13 Blood Pressure 100/58 L Pulse Oximetry 97 96 Oxygen Delivery Method Oxygen Flow Rate 04/02/22 13:15 04/02/22 13:15 04/02/22 13:28 Pulse Rate 60 59 L Respiratory Rate 12 16 Blood Pressure 99/59 L Pulse Oximetry 96 97 Oxygen Delivery Method Nasal Cannula Oxygen Flow Rate 2 04/02/22 13:28 04/02/22 13:29 04/02/22 13:30 Pulse Rate 57 L Respiratory Rate 16 Blood Pressure 114/69 106/69 Pulse Oximetry 97 Oxygen Delivery Method Oxygen Flow Rate 04/02/22 13:59 04/02/22 13:30 04/02/22 13:45 Pulse Rate 58 L 57 L Respiratory Rate 17 14 Blood Pressure Pulse Oximetry 93 96 96 Oxygen Delivery Method Room Air Oxygen Flow Rate 04/02/22 14:00 04/02/22 14:00 04/02/22 14:15 Pulse Rate 57 L 56 L Respiratory Rate 16 13 Blood Pressure 115/70 Pulse Oximetry 94 95 Oxygen Delivery Method Oxygen Flow Rate 04/02/22 14:30 04/02/22 14:30 04/02/22 14:45 Pulse Rate 54 L 64 Respiratory Rate 14 16 Blood Pressure 112/67 Pulse Oximetry 96 96 Oxygen Delivery Method Room Air Oxygen Flow Rate 04/02/22 15:00 04/02/22 15:12 04/02/22 15:12 Pulse Rate 62 64 Respiratory Rate 12 14 Blood Pressure 102/69 Pulse Oximetry 93 93 Oxygen Delivery Method Room Air Oxygen Flow Rate Oxygen Delivery Method Room Air Oxygen Flow Rate 2 Narrative Exam Narrative: GEN: no acute distress, alert and oriented x1 HEENT: moist mucous membranes, PERRL NECK: trachea midline, no JVD CV: regular rate and rhythm, no murmurs PULM: clear bilaterally ABD: soft, nontender, nondistended, no organomegaly EXT: warm and well perfused with no edema NEURO: awake, alert, oriented, no focal deficits Objective Labs Result Diagrams: 04/02/22 09:50 04/02/22 09:50 Labs: Laboratory Results - last 24 hr 04/02/22 04/02/22 04/02/22 09:50 09:50 09:50 WBC 5.2 RBC 5.19 Hgb 15.5 Hct 45.2 MCV 87.2 MCH 29.9 MCHC 34.3 RDW 13.1 Plt Count 183 Neut % (Auto) 66.3 Lymph % (Auto) 27.7 [place] % (Auto) 3.7 Eos % (Auto) 2.0 Baso % (Auto) 0.3 Neut # (Auto) 3400 Lymph # (Auto) 1400 [place] # (Auto) 200 Eos # (Auto) 100 Baso # (Auto) 0 PT 12.0 INR 1.0 APTT 25 L D-Dimer Sodium 136 L Potassium 3.7 Chloride 105 Carbon Dioxide 19 L BUN 13 Creatinine 0.95 Estimated GFR > 60 BUN/Creatinine Ratio 13.7 Glucose 165 H Lactate Calcium 8.4 Magnesium 2.3 Total Bilirubin 0.7 AST 31 ALT 38 Alkaline Phosphatase 72 Total Creatine Kinase 143 CK-MB (CK-2) 1.18 CK-MB (CK-2) Rel Index 0.8 L Troponin I < 0.012 NT-Pro-B Natriuret Pep Total Protein 6.8 Albumin 3.9 Globulin 2.9 Albumin/Globulin Ratio 1.3 Lipase 114 Prolactin SARS-CoV-2 (PCR) Influenza A (RT-PCR) Influenza B (RT-PCR) RSV (PCR) 04/02/22 04/02/22 04/02/22 09:50 09:50 09:50 WBC RBC Hgb Hct MCV MCH MCHC RDW Plt Count Neut % (Auto) Lymph % (Auto) [place] % (Auto) Eos % (Auto) Baso % (Auto) Neut # (Auto) Lymph # (Auto) [place] # (Auto) Eos # (Auto) Baso # (Auto) PT INR APTT D-Dimer 1476 H Sodium Potassium Chloride Carbon Dioxide BUN Creatinine Estimated GFR BUN/Creatinine Ratio Glucose Lactate 3.3 H Calcium Magnesium Total Bilirubin AST ALT Alkaline Phosphatase Total Creatine Kinase CK-MB (CK-2) CK-MB (CK-2) Rel Index Troponin I NT-Pro-B Natriuret Pep Total Protein Albumin Globulin Albumin/Globulin Ratio Lipase Prolactin 12.1 SARS-CoV-2 (PCR) Influenza A (RT-PCR) Influenza B (RT-PCR) RSV (PCR) 04/02/22 04/02/22 04/02/22 09:50 09:50 12:15 WBC RBC Hgb Hct MCV MCH MCHC RDW Plt Count Neut % (Auto) Lymph % (Auto) [place] % (Auto) Eos % (Auto) Baso % (Auto) Neut # (Auto) Lymph # (Auto) [place] # (Auto) Eos # (Auto) Baso # (Auto) PT INR APTT D-Dimer Sodium Potassium Chloride Carbon Dioxide BUN Creatinine Estimated GFR BUN/Creatinine Ratio Glucose Lactate 1.1 Calcium Magnesium Total Bilirubin AST ALT Alkaline Phosphatase Total Creatine Kinase CK-MB (CK-2) CK-MB (CK-2) Rel Index Troponin I NT-Pro-B Natriuret Pep 66 Total Protein Albumin Globulin Albumin/Globulin Ratio Lipase Prolactin SARS-CoV-2 (PCR) Positive H Influenza A (RT-PCR) Flu a negative Influenza B (RT-PCR) Flu b negative RSV (PCR) Negative Assessment & Plan Assessment & Plan narrative: # COVID positive -under be COVID positive in ED, initially on 2 L but this was weaned off after a few hours -patient largely asymptomatic with only some slight URI symptoms -will withhold treatment # possible seizure -patient had tonic-clonic activity with clenching of teeth but did not have urinary or bowel incontinence -Keppra loaded in ED -patient already has neurologist and will follow-up with them to discuss ongoing seizure prophylaxis -discharged on Keppra 500 mg twice daily Code status is full code. COVID positive. Proxy is . I have reviewed home meds and used all available resources to reconcile the home meds. This patient will be admitted as observation and will require less than 2 midnights of hospital time to treat possible seizure and COVID. Time Spent With Patient Critical Care time: I spent a total of [] minutes of critical care time on this patient's care today; this time is exclusive of procedural time.
[2022-04-02 18:57] LABS: TSH w/ Reflex to FT4 4.66 uIU/mL (0.47-4.68)
--- NOTE | 2022-04-02 18:58 | PM.DS.1 ---
History of Present Illness History of Present Illness Date Patient Seen: 04/02/22 Time Patient Seen: 18:58 Chief complaint: possible seizure/has confusion Narrative: Homero Rizvi is a 61yo M with PMH of stroke resulting in vascular dementia who presents with possible seizure and found to be COVID positive. Patient's at bedside and says they have had a cold for 10 days and have been quarantining since then. Then this morning patient had a sudden brief episode of shaking which appeared to be a seizure. says he had clenched teeth and some blood ran down his cheek like he bit his lip. He then had some grogginess following this. This is why she brought him in. Patient initially on 2L O2 in the ED but weaned off after a few hours. Spoke with who was willing to take patient home given no need for COVID treatment. She agreed with this plan. 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 Head CT negative. -Keppra loaded in ED -patient already has neurologist and will follow-up with them to discuss ongoing seizure prophylaxis -discharged on Keppra 500 mg twice daily # vascular dementia Hospital Course: Admitted due to COVID and possible seizure. Initially on 2L O2 and given remdesivir and decadron, but this was weaned off in ED after a few hours. Patient's possible seizure sounded suspicious given tonic clonic activity and post ictal state. Head CT negative. Therefore given keppra and patient will continue this until he can f/u with his neurologist as outpatient. Time Spent with Patient Time spent: Greater than 30 minutes Exam Vital Signs (past 8 hours): - 04/02/22 11:00 04/02/22 11:00 04/02/22 11:15 Pulse Rate 69 Respiratory Rate 19 Blood Pressure 122/78 113/75 Pulse Oximetry Oxygen Delivery Method Oxygen Flow Rate 04/02/22 11:15 04/02/22 11:30 04/02/22 11:30 Pulse Rate 63 73 Respiratory Rate 17 21 Blood Pressure 125/75 Pulse Oximetry 96 97 Oxygen Delivery Method Oxygen Flow Rate 04/02/22 11:45 04/02/22 11:46 04/02/22 11:46 Pulse Rate 89 102 H Respiratory Rate 26 H 27 H Blood Pressure 150/89 H Pulse Oximetry 95 94 Oxygen Delivery Method Nasal Cannula Oxygen Flow Rate 2 04/02/22 12:00 04/02/22 12:15 04/02/22 12:30 Pulse Rate 81 62 63 Respiratory Rate 19 18 16 Blood Pressure Pulse Oximetry 95 95 96 Oxygen Delivery Method Oxygen Flow Rate 04/02/22 12:51 04/02/22 12:52 04/02/22 12:52 Pulse Rate 68 67 Respiratory Rate 18 Blood Pressure 108/63 Pulse Oximetry 97 Oxygen Delivery Method Oxygen Flow Rate 04/02/22 13:00 04/02/22 13:00 04/02/22 13:15 Pulse Rate 62 Respiratory Rate 13 Blood Pressure 100/58 L 99/59 L Pulse Oximetry 96 Oxygen Delivery Method Oxygen Flow Rate 04/02/22 13:15 04/02/22 13:28 04/02/22 13:28 Pulse Rate 60 59 L Respiratory Rate 12 16 Blood Pressure 114/69 Pulse Oximetry 96 97 Oxygen Delivery Method Nasal Cannula Oxygen Flow Rate 2 04/02/22 13:29 04/02/22 13:30 04/02/22 13:59 Pulse Rate 57 L Respiratory Rate 16 Blood Pressure 106/69 Pulse Oximetry 97 93 Oxygen Delivery Method Room Air Oxygen Flow Rate 04/02/22 13:30 04/02/22 13:45 04/02/22 14:00 Pulse Rate 58 L 57 L Respiratory Rate 17 14 Blood Pressure 115/70 Pulse Oximetry 96 96 Oxygen Delivery Method Oxygen Flow Rate 04/02/22 14:00 04/02/22 14:15 04/02/22 14:30 Pulse Rate 57 L 56 L Respiratory Rate 16 13 Blood Pressure 112/67 Pulse Oximetry 94 95 Oxygen Delivery Method Oxygen Flow Rate 04/02/22 14:30 04/02/22 14:45 04/02/22 15:00 Pulse Rate 54 L 64 62 Respiratory Rate 14 16 12 Blood Pressure Pulse Oximetry 96 96 93 Oxygen Delivery Method Room Air Oxygen Flow Rate 04/02/22 15:12 04/02/22 15:12 04/02/22 15:15 Pulse Rate 64 61 Respiratory Rate 14 13 Blood Pressure 102/69 Pulse Oximetry 93 94 Oxygen Delivery Method Room Air Oxygen Flow Rate 04/02/22 15:30 04/02/22 15:30 04/02/22 15:45 Pulse Rate 64 66 Respiratory Rate 13 13 Blood Pressure 105/66 Pulse Oximetry 94 96 Oxygen Delivery Method Oxygen Flow Rate 04/02/22 16:00 04/02/22 16:00 04/02/22 16:15 Pulse Rate 62 62 Respiratory Rate 12 13 Blood Pressure 104/74 Pulse Oximetry 96 95 Oxygen Delivery Method Oxygen Flow Rate 04/02/22 16:30 04/02/22 16:45 04/02/22 17:00 Pulse Rate 60 54 L 52 L Respiratory Rate 13 13 12 Blood Pressure Pulse Oximetry 95 Oxygen Delivery Method Oxygen Flow Rate 04/02/22 17:01 04/02/22 17:07 04/02/22 17:07 Pulse Rate 51 L 71 Respiratory Rate 13 Blood Pressure 121/88 Pulse Oximetry 95 Oxygen Delivery Method Oxygen Flow Rate 04/02/22 17:15 04/02/22 17:30 04/02/22 17:35 Pulse Rate 78 60 62 Respiratory Rate Blood Pressure Pulse Oximetry 95 94 93 Oxygen Delivery Method Oxygen Flow Rate 04/02/22 17:35 04/02/22 17:45 04/02/22 18:00 Pulse Rate 72 Respiratory Rate Blood Pressure 111/73 116/78 Pulse Oximetry 94 Oxygen Delivery Method Oxygen Flow Rate 04/02/22 18:00 04/02/22 18:15 Pulse Rate 61 70 Respiratory Rate Blood Pressure Pulse Oximetry 95 95 Oxygen Delivery Method Room Air Oxygen Flow Rate Oxygen Delivery Method Room Air Oxygen Flow Rate 2 Narrative Exam Narrative: GEN: no acute distress, alert and oriented x1 HEENT: moist mucous membranes, PERRL NECK: trachea midline, no JVD CV: regular rate and rhythm, no murmurs PULM: clear bilaterally ABD: soft, nontender, nondistended, no organomegaly EXT: warm and well perfused with no edema NEURO: awake, alert, oriented, no focal deficits Objective Labs Result Diagrams: 04/02/22 09:50 04/02/22 09:50 Labs: Laboratory Results - last 24 hr 04/02/22 04/02/22 04/02/22 09:50 09:50 09:50 WBC 5.2 RBC 5.19 Hgb 15.5 Hct 45.2 MCV 87.2 MCH 29.9 MCHC 34.3 RDW 13.1 Plt Count 183 Neut % (Auto) 66.3 Lymph % (Auto) 27.7 [place] % (Auto) 3.7 Eos % (Auto) 2.0 Baso % (Auto) 0.3 Neut # (Auto) 3400 Lymph # (Auto) 1400 [place] # (Auto) 200 Eos # (Auto) 100 Baso # (Auto) 0 PT 12.0 INR 1.0 APTT 25 L D-Dimer Sodium 136 L Potassium 3.7 Chloride 105 Carbon Dioxide 19 L BUN 13 Creatinine 0.95 Estimated GFR > 60 BUN/Creatinine Ratio 13.7 Glucose 165 H Lactate Calcium 8.4 Magnesium 2.3 Total Bilirubin 0.7 AST 31 ALT 38 Alkaline Phosphatase 72 Total Creatine Kinase 143 CK-MB (CK-2) 1.18 CK-MB (CK-2) Rel Index 0.8 L Troponin I < 0.012 NT-Pro-B Natriuret Pep Total Protein 6.8 Albumin 3.9 Globulin 2.9 Albumin/Globulin Ratio 1.3 Lipase 114 Prolactin SARS-CoV-2 (PCR) Influenza A (RT-PCR) Influenza B (RT-PCR) RSV (PCR) 04/02/22 04/02/22 04/02/22 09:50 09:50 09:50 WBC RBC Hgb Hct MCV MCH MCHC RDW Plt Count Neut % (Auto) Lymph % (Auto) [place] % (Auto) Eos % (Auto) Baso % (Auto) Neut # (Auto) Lymph # (Auto) [place] # (Auto) Eos # (Auto) Baso # (Auto) PT INR APTT D-Dimer 1476 H Sodium Potassium Chloride Carbon Dioxide BUN Creatinine Estimated GFR BUN/Creatinine Ratio Glucose Lactate 3.3 H Calcium Magnesium Total Bilirubin AST ALT Alkaline Phosphatase Total Creatine Kinase CK-MB (CK-2) CK-MB (CK-2) Rel Index Troponin I NT-Pro-B Natriuret Pep Total Protein Albumin Globulin Albumin/Globulin Ratio Lipase Prolactin 12.1 SARS-CoV-2 (PCR) Influenza A (RT-PCR) Influenza B (RT-PCR) RSV (PCR) 04/02/22 04/02/22 04/02/22 09:50 09:50 12:15 WBC RBC Hgb Hct MCV MCH MCHC RDW Plt Count Neut % (Auto) Lymph % (Auto) [place] % (Auto) Eos % (Auto) Baso % (Auto) Neut # (Auto) Lymph # (Auto) [place] # (Auto) Eos # (Auto) Baso # (Auto) PT INR APTT D-Dimer Sodium Potassium Chloride Carbon Dioxide BUN Creatinine Estimated GFR BUN/Creatinine Ratio Glucose Lactate 1.1 Calcium Magnesium Total Bilirubin AST ALT Alkaline Phosphatase Total Creatine Kinase CK-MB (CK-2) CK-MB (CK-2) Rel Index Troponin I NT-Pro-B Natriuret Pep 66 Total Protein Albumin Globulin Albumin/Globulin Ratio Lipase Prolactin SARS-CoV-2 (PCR) Positive H Influenza A (RT-PCR) Flu a negative Influenza B (RT-PCR) Flu b negative RSV (PCR) Negative Discharge Plan Departure Patient Disposition: Home Clinical Impression: Seizure, COVID Instructions: DI for Seizure (Not Epilepsy/Seizure Disorder) Prescriptions: New levetiracetam 500 mg tablet 500 mg PO BID 90 Days Qty: 180 0RF Referrals: Krystyna Zeng MD [Primary Care Provider] - 2 Weeks
== END 2022-04-02 19:16 | disposition home or self-care (01) ==
LOC: ED 11:08 → AC 16:24 → ED 18:54
PROVIDERS: Student in an Organized Health Care Education/Training Program; Emergency Provider Emergency Medicine; Family Provider Family Medicine; PCP Family Medicine; Referring Provider Emergency Medicine
DX: U07.1 COVID-19 (principal); R56.9 Unspecified convulsions; R07.9 Chest pain, unspecified
CPT/HCPCS: 0241U; 36415; 70450; 71045; 71275; 80053; 81003; 82550; 82553; 83605; 83690; 83735; 83880; 84146; 84443; 84484; 85025; 85379; 85610; 85730; 93005; 93010; 96361; 96365; 96375; 99285; J1100; J1953; Q9967